=== PATIENT | female | born 1965 | race African-American/Black ===

== ENCOUNTER 2017-09-03 18:42 | Inpatient (IN) | payer OTHER ==
[2017-09-03] MEDS ORDERED: SODIUM CHLORIDE 500 ML IV ONE (19:05)
[2017-09-03] MEDS ORDERED: dilTIAZem HCL 30 MG TABLET (FP) PO ONE (19:18)
[2017-09-03] MEDS ORDERED: dilTIAZem HCL 50 MG/10 ML - 10 ML VIAL IVPUSH ONE ×2 (19:18→19:55)
[2017-09-03 19:20] LABS: HEMATOCRIT 36.5 % (32.4-45.2); HEMOGLOBIN 12.1 GM/dL (10.7-15.3); MCH 34.2 pg (25.7-33.7); MCHC 33.1 g/dl (32.0-36.0); MEAN CELL VOLUME 103.2 fl (80-96); RBC 3.54 M/mm3 (3.60-5.2); RDW 17.8 % (11.6-15.6)
[2017-09-03] MEDS ORDERED: dilTIAZem HCL 125 MG/25 ML - 25 ML VIAL ONE (19:20)
--- NOTE | 2017-09-03 19:23 | PDOC ---
History of Present Illness - General History Source: Patient, Spouse Exam Limitations: No Limitations - History of Present Illness Initial Comments: 09/03/17 19:48 The patient is a 51 year old female with past medical history of asthma, anemia , bipolar disorder and skin disease (psoriasis and eczema) presents to the emergency department via ems complaining of racing heart since around 3:00 in the afternoon. The patient states she was fine in the morning, but states she was having nose bleeds (now resolved) and hemoptysis, later in the day she went to visit her cousin. The patient reports she had to walk up several hill to reach the house, reports using a cane to ambulate. She reports at the house there was no air condition and states the house was hot. The patient reports she experienced symptoms of fatigue, heart palpitation and dyspnea. The patient immediately pressed her life alert necklace. The patient reports a baseline of bad appetite, the reports she doesn't intake much. The patient reports daily watery (non bilious or non bloody) vomiting. The patient reports having a MRI done which showed 30 fibroids in the uterus, reports a generalized left quadrant abdominal pain. The patient reports going to physical therapy for her left hip.Denies any prior history of Afib. Denies daily use of blood thinners. Denies dehydration, diarrhea or constipation. Denies any fever, chills, or chest pain. Denies any dysuria, hematuria, frequency or urgency to urinate. Allergies: NKDA Social history: Patient reports occasional use of alcohol, states she has 1-2 drinks yesterday. Denies any history of smoking or recreational drug use. Surgical history: None reported. PCP: [facility] Dr. Za Orlando MD (Last visit last week). <Melissa Vincent - Last Filed: 09/03/17 20:24> <Geoff Chou - Last Filed: 09/03/17 20:55> - General Chief Complaint: Palpitations Stated Complaint: AFIB,WEAKNESS,DIZZINESS Time Seen by Provider: 09/03/17 18:57 Past History <Melissa Vincent - Last Filed: 09/03/17 20:24> - Suicide/Smoking/Psychosocial Hx Smoking History: Unknown if ever smoked Hx Alcohol Use: Yes <Geoff Chou - Last Filed: 09/03/17 20:55> - Past Medical History Allergies/Adverse Reactions: Allergies Allergy/AdvReac Type Severity Reaction Status Date / Time No Known Allergies Allergy Verified 09/03/17 19:06 Review of Systems - Review of Systems Constitutional: No: Chills, Fever Respiratory: Yes: SOB with Exertion. No: Cough Cardiac (ROS): Yes: Palpitations. No: Chest Pain, Edema, Syncope ABD/GI: Yes: Vomiting (chronic every morning). No: Diarrhea : No: Dysuria Neurological: No: Headache All Other Systems: Reviewed and Negative <Geoff Chou - Last Filed: 09/03/17 20:55> *Physical Exam - Vital Signs Last Vital Signs Temp Pulse Resp BP Pulse Ox 98.8 F 90 20 102/74 97 09/03/17 19:00 09/03/17 19:00 09/03/17 19:00 09/03/17 19:00 09/03/17 19:00 - Physical Exam Comments: 09/03/17 19:51 GENERAL: The patient is awake, alert, and fully oriented, in no acute distress. HEAD: Normal with no signs of trauma. EYES: Pupils equal, round and reactive to light, extraocular movements intact, sclera anicteric, conjunctiva clear with no pallor. ENT: Ears normal, nares patent, oropharynx clear without exudates. Moist mucous membranes. NECK: Normal range of motion, supple without lymphadenopathy, JVD, or masses. LUNGS: Breath sounds equal, clear to auscultation bilaterally. No wheeze/ crackles. HEART: (+)Irregular tachycardia. normal S1 and S2 without murmur or rub. ABDOMEN:(+)Palpable enlarged tender uterus to the umbilicus Soft/nondistended. BS wnl. No guarding or rebound. No hepatosplenomegaly. EXTREMITIES: Normal range of motion, no edema. No clubbing or cyanosis. No cords, erythema, or tenderness. NEUROLOGICAL: Cranial nerves II through XII grossly intact. Normal speech, normal gait. PSYCH: Normal mood, normal affect. SKIN: Warm, Dry, normal turgor, no rashes or lesions noted. <Melissa Vincent - Last Filed: 09/03/17 20:24> - Vital Signs Last Vital Signs Temp Pulse Resp BP Pulse Ox 98.8 F 90 20 102/74 97 09/03/17 19:00 09/03/17 19:00 09/03/17 19:00 09/03/17 19:00 09/03/17 19:00 <Geoff Chou - Last Filed: 09/03/17 20:55> Heart Score/ECG Review #1 ECG reviewed & interpreted by me at: 18:58 Compared to previous ECG there are: Previous ECG unavail 09/03/17 19:19 afib with RVR at 135. qrs 86. no acute st changes, nonspecific t wave changes #2 ECG reviewed & interpreted by me at: 20:49 09/03/17 20:53 afib now at 129, no ST changes <Geoff Chou - Last Filed: 09/03/17 20:55> ED Treatment Course - LABORATORY CBC & Chemistry Diagram: 09/03/17 19:11 09/03/17 19:11 - ADDITIONAL ORDERS Additional order review: Laboratory Results 09/03/17 19:11 PT with INR 12.10 INR 1.07 09/03/17 19:11 RBC 3.54 L MCV 103.2 H MCHC 33.1 RDW 17.8 H Neutrophils % No Result Required. Lymphocytes % No Result Required. - Medications Given in the ED: ED Medications Discontinued Medications Generic Name Dose Route Start Last Admin Trade Name Freq PRN Reason Stop Dose Admin Diltiazem HCl 30 mg 09/03/17 19:18 09/03/17 19:22 Cardizem - PO 09/03/17 19:19 30 mg ONCE ONE Administration Diltiazem HCl 10 mg 09/03/17 19:18 09/03/17 19:22 Cardizem Injection - IVPUSH 09/03/17 19:19 10 mg ONCE ONE Administration <Melissa Vincent - Last Filed: 09/03/17 20:24> - LABORATORY CBC & Chemistry Diagram: 09/03/17 19:11 09/03/17 19:11 - RADIOLOGY Radiology Studies Ordered: Category Date Time Status CHEST X-RAY PORTABLE* [RAD] Stat Radiology 09/03/17 19:05 Ordered <Geoff Cohu - Last Filed: 09/03/17 20:55> Medical Decision Making - Critical Care Time Total Critical Care Time (minutes): 50 Critical Care Statement: The care of this patient involved high complexity decision making to prevent further life threatening deterioration of the patient 's condition and/or to evaluate & treat vital organ system(s) failure or risk of failure. - Medical Decision Making 09/03/17 19:20 A portion of this note was documented by scribe services under my direction. I have reviewed the details of the note, within reason, and agree with the documentation with the following case summary and management plan written by me. 51-year-old female with history of bipolar disorder, asthma, fibroids and anemia presents with palpitations and generalized weakness/dyspnea since this afternoon. Patient was in her usual state of health, today was ambulating outside in the heat and felt unusually fatigued, arrived at her friend's house and activated EMS on her med alert. She was noted to have tachycardia, presents for evaluation. Does not recall having prior cardiac evaluation such as stress test or echo, has no known history of atrial fibrillation. Never had chest pain or pressure. No recent weight loss, no leg swelling. No h/o etoh or drug use Tachycardia, blood pressure 105/60, O2 sat normal Well-appearing lying in stretcher, speaking full sentences without acute respiratory distress Heart is irregular tachycardia, lungs are clear Abdomen is soft/nondistended, palpable enlarged fibroid uterus to the umbilicus No edema or calf tenderness Neurologically intact 51-year-old female with history of bipolar her and anemia presents with likely new onset atrial fibrillation, currently with rapid ventricular response. Immediately placed on monitor, IV access obtained and IV fluid resuscitation initiated EKG shows rapid atrial fibrillation without acute ST changes Rate control with diltiazem Labs, chest x-ray Has history of anemia and question skin disorder/bruising, will check labs prior to initiating anticoagulation Likely admission to telemetry for further cardiac evaluation 09/03/17 19:55 wbc 2, diff pending. Hgb 12.1 chem notable for hypocalcemia, hypomagnesemia - both repleted. Trop negative. elevated LFTs, will check ultrasound received diltiazem IV and PO, HR only slightly improved to 120, tolerated well with BP now 130. Will give another dose diltiazem IV and reassess. 09/03/17 20:16 rate now controlled at 100 after 10mg IV x2. BP stable, feels better. Pending sono, platelets still pending so will hold a/c until resulted. Signout given and accepted for inpt tele by Dr. Royal. 09/03/17 20:54 heart rate increased back to 120s. Will start diltiazem drip, proceed with tele admit. <Geoff Chou - Last Filed: 09/03/17 20:55> *DC/Admit/Observation/Transfer - Attestations Scribe Attestion: 09/03/17 19:52 Documentation prepared by Melissa Vincent, acting as medical terminologist for Geoff Chou MD. <Melissa Vincent - Last Filed: 09/03/17 20:24> - Discharge Dispostion Decision to Admit order: Yes <Geoff Chou - Last Filed: 09/03/17 20:55> Diagnosis at time of Disposition: Atrial fibrillation with rapid ventricular response, Elevated LFTs - Discharge Dispostion Condition at time of disposition: Fair
[2017-09-03] MEDS ORDERED: dilTIAZem HCL 30 MG TABLET (FP) ONE (19:24)
[2017-09-03 19:27] LABS: ADD RBC MORPHOLOGY YES
[2017-09-03 19:45] LABS: INR 1.07 (0.82-1.09); PROTHROMBIN TIME (PATIENT) 12.1 SEC (9.7-13.0)
[2017-09-03 19:47] VITALS: BMI 25.5
[2017-09-03 19:47] LABS: ALBUMIN 3.2 g/dl (3.4-5.0); ANION GAP 13 (8-16); BILIRUBIN,TOTAL 2.8 mg/dL (0.2-1.0); BLOOD UREA NITROGEN 5 mg/dL (7-18); CALCIUM 7.6 mg/dL (8.5-10.1); CHLORIDE 100 mmol/L (98-107); CO2 26 mmol/L (21-32); CREATININE 0.7 mg/dL (0.55-1.02); GLUCOSE,RANDOM 74 mg/dL (74-106); MAGNESIUM 1.4 mg/dL (1.8-2.4); POTASSIUM 3.6 mmol/L (3.5-5.1); SGPT/ALT 83 U/L (12-78); SODIUM 139 mmol/L (136-145); TOT PROT 6.8 g/dl (6.4-8.2)
[2017-09-03 19:50] LABS: ALK PHOS 161 U/L (45-117)
[2017-09-03 19:53] LABS: SGOT/AST 592 U/L (15-37)
[2017-09-03] MEDS ORDERED: MAGNESIUM SULF 50% (8.12 MEQ/2 ML-1 GM VIAL) IVPB ONE (19:56)
[2017-09-03] MEDS ORDERED: CALCIUM GLUCONATE 10% - 1,000 MG/10 ML VIAL IVPB ONE (19:56)
[2017-09-03] MEDS ORDERED: IBUPROFEN 600 MG TABLET (FP) PO ONE ×2 (19:59→20:14)
[2017-09-03] MEDS ORDERED: CALCIUM CHLORIDE 1 GM/10 ML *DISP.SYRIN ONE ×2 (20:15→20:20)
[2017-09-03] MEDS ORDERED: MAGNESIUM SULF 50% (8.12 MEQ/2 ML-1 GM VIAL) ONE (20:28)
[2017-09-03 20:29] LABS: MEAN PLT VOLUME 7.9 fl (7.5-11.1); PLATELET COUNT 94 K/MM3 (134-434); PLATELET ESTIMATE SLT DECREASE
--- NOTE | 2017-09-03 20:38 | HP ---
CHIEF COMPLAINT: PCP: HISTORY OF PRESENT ILLNESS: ER course was notable for: (1) (2) (3) Recent Travel: PAST MEDICAL HISTORY: PAST SURGICAL HISTORY: Social History: Smoking: Alcohol: Drugs: Family History: Allergies No Known Allergies Allergy (Verified 09/03/17 19:06) HOME MEDICATIONS: REVIEW OF SYSTEMS CONSTITUTIONAL: Absent: fever, chills, diaphoresis, generalized weakness, malaise, loss of appetite, weight change HEENT: Absent: rhinorrhea, nasal congestion, throat pain, throat swelling, difficulty swallowing, mouth swelling, ear pain, eye pain, visual changes CARDIOVASCULAR: Absent: chest pain, syncope, palpitations, irregular heart rate, lightheadedness , peripheral edema RESPIRATORY: Absent: cough, shortness of breath, dyspnea with exertion, orthopnea, wheezing, stridor, hemoptysis GASTROINTESTINAL: Absent: abdominal pain, abdominal distension, nausea, vomiting, diarrhea, constipation, melena, hematochezia GENITOURINARY: Absent: dysuria, frequency, urgency, hesitancy, hematuria, flank pain, genital pain MUSCULOSKELETAL: Absent: myalgia, arthralgia, joint swelling, back pain, neck pain SKIN: Absent: rash, itching, pallor HEMATOLOGIC/IMMUNOLOGIC: Absent: easy bleeding, easy bruising, lymphadenopathy, frequent infections ENDOCRINE: Absent: unexplained weight gain, unexplained weight loss, heat intolerance, cold intolerance NEUROLOGIC: Absent: headache, focal weakness or paresthesias, dizziness, unsteady gait, seizure, mental status changes, bladder or bowel incontinence PSYCHIATRIC: Absent: anxiety, depression, suicidal or homicidal ideation, hallucinations. PHYSICAL EXAMINATION Vital Signs - 24 hr 09/03/17 19:00 Temperature 98.8 F Pulse Rate 90 Respiratory 20 Rate Blood Pressure 102/74 O2 Sat by Pulse 97 Oximetry (%) GENERAL: Awake, alert, and fully oriented, in no acute distress. HEAD: Normal with no signs of trauma. EYES: Pupils equal, round and reactive to light, extraocular movements intact, sclera anicteric, conjunctiva clear. No lid lag. EARS, NOSE, THROAT: Ears normal, nares patent, oropharynx clear without exudates. Moist mucous membranes. NECK: Normal range of motion, supple without lymphadenopathy, JVD, or masses. LUNGS: Breath sounds equal, clear to auscultation bilaterally. No wheezes, and no crackles. No accessory muscle use. HEART: Regular rate and rhythm, normal S1 and S2 without murmur, rub or gallop. ABDOMEN: Soft, nontender, not distended, normoactive bowel sounds, no guarding, no rebound, no masses. No hepatomegaly or splenomegaly. MUSCULOSKELETAL: Normal range of motion at all joints. No bony deformities or tenderness. No CVA tenderness. UPPER EXTREMITIES: 2+ pulses, warm, well-perfused. No cyanosis. No clubbing. No peripheral edema. LOWER EXTREMITIES: 2+ pulses, warm, well-perfused. No calf tenderness. No peripheral edema. NEUROLOGICAL: Cranial nerves II-XII intact. Normal speech. Normal gait. PSYCHIATRIC: Cooperative. Good eye contact. Appropriate mood and affect. SKIN: Warm, dry, normal turgor, no rashes or lesions noted, normal capillary refill. Laboratory Results - last 24 hr 09/03/17 09/03/17 09/03/17 19:11 19:11 19:11 WBC 2.0 L RBC 3.54 L Hgb 12.1 Hct 36.5 MCV 103.2 H MCH 34.2 H MCHC 33.1 RDW 17.8 H Plt Count 94 L MPV 7.9 Neutrophils % No Result Required. Lymphocytes % No Result Required. Nucleated RBC % 1 H Platelet Estimate Slt decrease Platelet Comment PT with INR 12.10 INR 1.07 Sodium 139 Potassium 3.6 Chloride 100 Carbon Dioxide 26 Anion Gap 13 BUN 5 L Creatinine 0.7 Creat Clearance w eGFR > 60 Random Glucose 74 Calcium 7.6 L Magnesium 1.4 L Total Bilirubin 2.8 H AST 592 H ALT 83 H Alkaline Phosphatase 161 H Creatine Kinase 301 H Creatine Kinase Index 0.8 CK-MB (CK-2) 2.420 Troponin I < 0.02 Total Protein 6.8 Albumin 3.2 L ASSESSMENT/PLAN: Hospitalist Screening - Colonoscopy Questionnaire Colonoscopy Questionnaire: Colonoscopy Questionnaire
[2017-09-03 20:43] LABS: MACROCYTOSIS 1+; TARGET CELLS 1+
--- NOTE | 2017-09-03 21:00 | PN ---
Teaching Attending Note Name of Resident: Milena Baca ATTENDING PHYSICIAN STATEMENT I saw and evaluated the patient. I reviewed the resident's note and discussed the case with the resident. I agree with the resident's findings and plan as documented. SUBJECTIVE: OBJECTIVE: ASSESSMENT AND PLAN: this is a 51 y/o female patient with hx of bipolar disorder, fibroids and chronic hip pain presented to the ER after the patient stated she was feeling her heart beating fast and she was out of breath, patient stated this was the first time she has had symptoms like this before. she is visiting her friends and according to her she had issues sleeping due to the hot weather without any aircondition is on. patient in the ER was found to have atrial fibrillation with Low voltage QRS with RVR. plan: rate control with diltiazem 30mg q8hrs cardiology consult obtain TSH urine toxicology echocardiogram patient has a CHADVasc score of 1 - arvizu zone of initiating the anticoagulation discussed with the patient the benefit and the risk of having being on anticoagulation - i even explained to her that we can start her on enoxaprin until she decides, however she said she is willing to take the medication since she does not want to risk having a stroke. also she does not want the enoxaparin because she does not want any injections. patient was informed that there is an increased risk of GI bleeding and possible bleeding from the fibroids, but she stated that they havent bleed in years, will star the patient on rivaroxiban tonight will follow up with cardiology recommendation in the morning.
[2017-09-03] MEDS: DILTIAZEM INJECTION 125 MG in SODIUM CHLORIDE 100 ML IVPB SCH (21:57)
[2017-09-03] MEDS: dilTIAZem HCL 30 MG TABLET (FP) PO SCH (22:50)
[2017-09-03] MEDS: HEPARIN NA (PORCINE) 5,000 UNITS/ML 1ML VIAL SQ SCH (23:05)
--- NOTE | 2017-09-04 00:38 | HP ---
CHIEF COMPLAINT:palpitations. PCP:Dr. Za Orlando MD HISTORY OF PRESENT ILLNESS: 51 y/o female patient with hx of bipolar disorder, fibroids and chronic hip pain presented to the ER after the patient stated she was feeling her heart beating fast and she was out of breath, patient stated this was the first time she has had symptoms like this before. She is visiting her friends and according to her she had issues sleeping due to the hot weather without any air condition on. She also endorses some generalized left quadrant abdominal pain. States that she has been having some NBNB vomiting as well. She admits to having consumed 1/2 pint of vodka the night before. No history of irregular heart beat or use of blood thinners. Denies CP,PAGE, nausea, urinary symptoms , fever or chills. ER course was notable for: (1)EKG showed afib with RVR (2)Elevated LFT's (3) Recent Travel: PAST MEDICAL HISTORY:asthma, anemia, bipolar disorder and skin disease ( psoriasis and eczema) PAST SURGICAL HISTORY:none Social History: Smoking:denies Alcohol:occasional Drugs: denies Family History: Allergies No Known Allergies Allergy (Verified 09/03/17 19:06) HOME MEDICATIONS: REVIEW OF SYSTEMS CONSTITUTIONAL: Absent: fever, chills, diaphoresis, generalized weakness, malaise, loss of appetite, weight change HEENT: Absent: rhinorrhea, nasal congestion, throat pain, throat swelling, difficulty swallowing, mouth swelling, ear pain, eye pain, visual changes CARDIOVASCULAR: palpitations, irregular heart rate Absent: chest pain, syncope, , lightheadedness, peripheral edema RESPIRATORY: Absent: cough, shortness of breath, dyspnea with exertion, orthopnea, wheezing, stridor, hemoptysis GASTROINTESTINAL:abdominal pain Absent: , abdominal distension, nausea, vomiting, diarrhea, constipation, melena , hematochezia GENITOURINARY: Absent: dysuria, frequency, urgency, hesitancy, hematuria, flank pain, genital pain MUSCULOSKELETAL: Absent: myalgia, arthralgia, joint swelling, back pain, neck pain SKIN: Absent: rash, itching, pallor HEMATOLOGIC/IMMUNOLOGIC: Absent: easy bleeding, easy bruising, lymphadenopathy, frequent infections ENDOCRINE: Absent: unexplained weight gain, unexplained weight loss, heat intolerance, cold intolerance NEUROLOGIC: Absent: headache, focal weakness or paresthesias, dizziness, unsteady gait, seizure, mental status changes, bladder or bowel incontinence PSYCHIATRIC: Absent: anxiety, depression, suicidal or homicidal ideation, hallucinations. PHYSICAL EXAMINATION Vital Signs - 24 hr 09/03/17 09/03/17 19:00 23:05 Temperature 98.8 F Pulse Rate 90 72 Respiratory 20 Rate Blood Pressure 102/74 118/66 O2 Sat by Pulse 97 Oximetry (%) GENERAL:AAOx3 NAD EYES: PERRLA, EOMI, sclera anicteric, conjunctiva clear. No lid lag. EARS, NOSE, THROAT: Moist mucous membranes. NECK:supple without lymphadenopathy, JVD, or masses. LUNGS: CTAB. No wheezes, and no crackles. No accessory muscle use. HEART: irregularly irregular and tachy, normal S1 and S2 without murmur, rub or gallop. ABDOMEN: Soft, nontender, not distended, normoactive bowel sounds, no guarding, no rebound, no masses. MUSCULOSKELETAL: Normal range of motion at all joints. No bony deformities or tenderness. No CVA tenderness. LOWER EXTREMITIES: 2+ pulses, warm, well-perfused. No calf tenderness. No peripheral edema. NEUROLOGICAL: Cranial nerves II-XII intact. Normal speech. PSYCHIATRIC: Cooperative. Good eye contact. Appropriate mood and affect. Laboratory Results - last 24 hr 09/03/17 09/03/17 09/03/17 19:11 19:11 19:11 WBC 2.0 L RBC 3.54 L Hgb 12.1 Hct 36.5 MCV 103.2 H MCH 34.2 H MCHC 33.1 RDW 17.8 H Plt Count 94 L MPV 7.9 Total Counted 100 Neutrophils % No Result Required. Neutrophils % (Manual) 52.0 Lymphocytes % No Result Required. Lymphocytes % (Manual) 32.0 Monocytes % (Manual) 12 H Eosinophils % (Manual) 1.0 Nucleated RBC % 1 H Differential Comment Man diff performed Platelet Estimate Slt decrease Platelet Comment Poikilocytosis 1+ Macrocytosis 1+ Target Cells 1+ PT with INR 12.10 INR 1.07 Sodium 139 Potassium 3.6 Chloride 100 Carbon Dioxide 26 Anion Gap 13 BUN 5 L Creatinine 0.7 Creat Clearance w eGFR > 60 Random Glucose 74 Calcium 7.6 L Magnesium 1.4 L Total Bilirubin 2.8 H AST 592 H ALT 83 H Alkaline Phosphatase 161 H Creatine Kinase 301 H Creatine Kinase Index 0.8 CK-MB (CK-2) 2.420 Troponin I < 0.02 Total Protein 6.8 Albumin 3.2 L ASSESSMENT/PLAN: 51 y/o female patient with hx of bipolar disorder, fibroids and chronic hip pain presented to the ER after the patient stated she was feeling her heart beating fast and she was out of breath and is being admitted to telemetry for new onset afib with RVR. Problem List - Problem (1) Atrial fibrillation with rapid ventricular response Assessment/Plan: New onset * CHADVASC score 1 * admit to tele * cardio consult * TSH pending. * Utox * Echo pending. * started on Cardizem 30mg TID * will start Xarelto 20mg PO (2) Elevated LFTs Assessment/Plan: US abdomen shows fatty liver vs. cirrhotic changes. * Will recommend MRI. * repeat LFT's in AM (3) DVT prophylaxis Assessment/Plan: heparin sq TID will start xarelto tomorrow pending cardio recommendations. Visit type - Emergency Visit Emergency Visit: Yes ED Registration Date: 09/03/17 Care time: The patient presented to the Emergency Department on the above date and was hospitalized for further evaluation of their emergent condition. - New Patient This patient is new to me today: Yes Date on this admission: 09/04/17 - Critical Care Critical Care patient: No Hospitalist Screening - Colonoscopy Questionnaire Colonoscopy Questionnaire: Colonoscopy Questionnaire - Patient: 50 - 75 years old and never had a screening colonoscopy: No History of colon or rectal polyps, or CA: No History of IBD, Crohn's disease or UC: No History of abdominal radiation therapy as a child: No - Relative: 1 with colon or rectal CA, or polyps at age 60 or younger: No Colon or rectal CA diagnosed at age 45 or younger: No Multiple relatives with colon or rectal CA: No - Outcome: Screening Result: Negative Screen
[2017-09-04] MEDS: dilTIAZem HCL 30 MG TABLET (FP) PO SCH ×3 (06:35→21:30)
[2017-09-04] MEDS: HEPARIN NA (PORCINE) 5,000 UNITS/ML 1ML VIAL SQ SCH (06:37)
[2017-09-04 07:37] LABS: BASO % 1.5 % (0-2.0); EOS % 1.4 % (0-4.5); HEMATOCRIT 32.6 % (32.4-45.2); LYMPH % 29.1 % (8-40); MCHC 33.7 g/dl (32.0-36.0); MEAN CELL VOLUME 103.7 fl (80-96); MEAN PLT VOLUME 8.1 fl (7.5-11.1); MONO % 10.6 % (3.8-10.2); NEUT % 57.4 % (42.8-82.8); PLATELET COUNT 78 K/MM3 (134-434); RBC 3.14 M/mm3 (3.60-5.2); RDW 17.6 % (11.6-15.6)
[2017-09-04 07:41] LABS: WHITE BLOOD COUNT 1.6 K/mm3 (4.0-10.0)
[2017-09-04 08:21] LABS: ALBUMIN 2.7 g/dl (3.4-5.0); ANION GAP 14 (8-16); BLOOD UREA NITROGEN 4 mg/dL (7-18); CALCIUM 7.3 mg/dL (8.5-10.1); CHLORIDE 106 mmol/L (98-107); CO2 22 mmol/L (21-32); GLUCOSE,RANDOM 50 mg/dL (74-106); MAGNESIUM 1.6 mg/dL (1.8-2.4); PHOSPHOROUS 3.8 mg/dL (2.5-4.9); POTASSIUM 3.5 mmol/L (3.5-5.1); SGPT/ALT 72 U/L (12-78); SODIUM 142 mmol/L (136-145)
[2017-09-04 08:32] LABS: ALK PHOS 133 U/L (45-117); BILIRUBIN,TOTAL 2.7 mg/dL (0.2-1.0); CREATININE 0.5 mg/dL (0.55-1.02); TOT PROT 5.9 g/dl (6.4-8.2)
[2017-09-04 08:42] LABS: SGOT/AST 518 U/L (15-37)
--- NOTE | 2017-09-04 10:12 | EKG ---
Test Reason : Blood Pressure : / mmHG Vent. Rate : 135 BPM Atrial Rate : 150 BPM P-R Int : 000 ms QRS Dur : 086 ms QT Int : 336 ms P-R-T Axes : 000 056 -06 degrees QTc Int : 504 ms ATRIAL FIBRILLATION WITH RAPID VENTRICULAR RESPONSE LOW VOLTAGE QRS SEPTAL INFARCT , AGE UNDETERMINED ABNORMAL ECG NO PREVIOUS ECGS AVAILABLE Confirmed by MARIA CHAVIS MD ([id number]) on 09/04/2017 10:12:34 AM Referred By: Confirmed By:MARIA CHAVIS MD
--- NOTE | 2017-09-04 10:12 | EKG ---
Test Reason : Blood Pressure : / mmHG Vent. Rate : 129 BPM Atrial Rate : 100 BPM P-R Int : 000 ms QRS Dur : 096 ms QT Int : 348 ms P-R-T Axes : 000 061 012 degrees QTc Int : 509 ms ATRIAL FIBRILLATION WITH RAPID VENTRICULAR RESPONSE LOW VOLTAGE QRS CANNOT RULE OUT ANTERIOR INFARCT (CITED ON OR BEFORE 03-SEP-2017) ABNORMAL ECG WHEN COMPARED WITH ECG OF 03-SEP-2017 18:58, QUESTIONABLE CHANGE IN INITIAL FORCES OF ANTERIOR LEADS NONSPECIFIC T WAVE ABNORMALITY NOW EVIDENT IN LATERAL LEADS Confirmed by PARTHA CLAUDIO, MARIA ([id number]) on 09/04/2017 10:12:15 AM Referred By: Confirmed By:MARIA CHAVIS MD
[2017-09-04] MEDS ORDERED: ONDANSETRON 4 MG/2 ML VIAL IVPUSH PRN ×2 (10:23→13:53)
[2017-09-04] MEDS ORDERED: LORazepam 1 MG TABLET PO PRN (10:23)
--- NOTE | 2017-09-04 10:29 | CON.GI ---
Consult Consult Specialty:: GI: Dr. Petersen for Dr. Pineda Referred by:: Hospitalist service Reason for Consultation:: Abnormal LFTs - History of Present Illness Chief Complaint: Palpitations History of Present Illness: 51F with palpitations. Used her medicalert necklace to call 911. Noted to be in A. Fib w/ RVR. Admitted. Had vomiting. Liver chemistries noted to be elevated including ALP, bilirubin and AST out of proportion to ALT. She has been told of fatty liver before in the past. She drinks a pint of vodaka per day and says that she has been through Detox in the [place] on multiple occasions. She has had episodes of etoh withdrawal in the past composed of tremors, nausea and vomiting. She denies abdominal pain. There is no family h/ o liver disease. She denies IVDA. She has never had a colonoscopy. There is no family history of colorectal cancer. - History Source History Provided By: Patient Limitations to Obtaining History: No Limitations - Past Medical History ...: No Psych: Yes: Addictions (ETOH abuse) Musculoskeletal: Yes: Other ("Left hip problem" and uses cane to aid in ambulation) - Past Surgical History Additional Surgical History: Denies - Alcohol/Substance Use Hx Alcohol Use: Yes History of Substance Use: reports: Cocaine (ex intranasal and crack cocaine abuse) - Smoking History Smoking history: Current every day smoker Have you smoked in the past 12 months: Yes - Social History Usual Living Arrangement: Alone ADL: Independent Place of : [facility] History of Recent Travel: No Home Medications - Allergies Allergies/Adverse Reactions: Allergies Allergy/AdvReac Type Severity Reaction Status Date / Time No Known Allergies Allergy Verified 09/03/17 19:06 Family Disease History - Family Disease History Family Disease History: Other: Father (Alive: etoh abuse), Mother ( when patient was 1. was overdosed), Brother (3, 1 from [place]), Sister (3, healthy) , Son (None), Daughter (None) Other Family History: No family history of liver disease, colorectal cancer or other GI malignancy Review of Systems - Review of Systems Constitutional: denies: Chills Cardiovascular: reports: Palpitations. denies: Chest Pain Respiratory: denies: Cough Gastrointestinal: reports: Vomiting. denies: Abdominal Pain Physical Exam-GI Vital Signs: Vital Signs Temperature 98.4 F 09/04/17 08:53 Pulse Rate 62 09/04/17 08:53 Respiratory Rate 22 09/04/17 08:53 Blood Pressure 122/61 09/04/17 08:53 O2 Sat by Pulse Oximetry (%) 94 L 09/03/17 22:00 Constitutional: Yes: Calm Eyes: No: Sclera Icterus Cardiovascular: Yes: Regular Rate and Rhythm Respiratory: Yes: CTA Bilaterally Gastrointestinal Inspection: No: Distention, Scars ...Auscultate: Yes: Normoactive Bowel Sounds ...Palpate: Yes: Hepatomegaly, Soft. No: Splenomegaly ...Percussion: No: Tympanitic Edema: No (No LE edema) Neurological: Yes: Alert, Oriented, Tremors. No: [facility]ix[facility] Labs: CBC, BMP 09/04/17 07:13 09/04/17 07:13 INR, PTT INR 1.07 (0.82-1.09) 09/03/17 19:11 Hepatic Panel Total Bilirubin 2.7 mg/dL (0.2-1.0) H 09/04/17 07:13 AST 518 U/L (15-37) H 09/04/17 07:13 ALT 72 U/L (12-78) 09/04/17 07:13 Alkaline Phosphatase 133 U/L (45-117) H 09/04/17 07:13 Albumin 2.7 g/dl (3.4-5.0) L 09/04/17 07:13 Imaging - Results Ultrasound: Report Reviewed (hepatomegaly with fatty infiltration) Problem List - Problems (1) Elevated LFTs Assessment/Plan: Asymptomatic in nature. Likely secondary to acute ETOH use, alcoholic hepatitis and some component from her a. fib Also she is tremulous and likely going into DT's Advise: MRCP to evaluate biliary tract Advised complete alcohol cessation Check hepatitis A antibody, hepatitis B surface antibody, heptitis B surface antigen, hepatitis B core antibody, hepatitis C antibody. If not immune to hepatitis B, should be advised she should be vaccinated Monitor LFTs Avoid hepatotoxic agents Rate control Replete lytes per primary team Code(s): R79.89 - OTHER SPECIFIED ABNORMAL FINDINGS OF BLOOD CHEMISTRY
[2017-09-04] MEDS ORDERED: PANTOPRAZOLE SODIUM 40 MG VIAL IVPUSH SCH (10:30)
[2017-09-04 10:34] LABS: COCAINE, UR NEGATIVE ng/ml (CUTOFF=300); METHADONE, UR NEGATIVE ng/ml (CUTOFF=300); OPIATES, URI NEGATIVE ng/ml (CUTOFF=300); PHENCYCLIDINE,URINE NEGATIVE ng/ml (CUTOFF=25); URINE AMPHETAMINES NEGATIVE ng/ml (CUTOFF=500); URINE BARBITURATES NEGATIVE ng/ml (CUTOFF=200); URINE BENZODIAZEPINES NEGATIVE ng/ml (CUTOFF=200)
[2017-09-04] MEDS ORDERED: FOLIC ACID INJECTION - 1 MG, THIAMINE HCL 100 MG, MULTIVIT INJECTION ADULT 10 ML in SOD... IVPB ONE (10:45)
[2017-09-04] MEDS ORDERED: MAGNESIUM SULF 50% (8.12 MEQ/2 ML-1 GM VIAL) IVPB ONE (12:35)
--- NOTE | 2017-09-04 12:47 | PN ---
Progress Note (short form) - Note Progress Note: Patient seen and examined, Tremulous, nausea/vomiting noted. denies any abdominal pain, chest pain, palpitations, dyspnea or dizziness. Objective: Vital Signs Period Temp Pulse Resp BP Sys/Marie Pulse Ox Last 24 Hr 97.1 F-99.3 F 62-121 20-22 102-125/61-79 94-97 Intake & Output 09/01/17 09/02/17 09/03/17 09/04/17 23:59 23:59 23:59 23:59 Intake Total 150 Balance 150 Weight 183 lb 178 lb 9.6 oz General: anxious, mildly tremulous, actively retching, with some vomitus in bed CVS:S1S2 regular currently Chest: CTAB, no rales or wheezing Abdomen:soft, hepatomegaly, mild tenderness along right hepatic margin, no voluntary or involuntary guarding or rigidity Extremities: mildly tremulous, no edema Active Medications Generic Name Dose Route Start Last Admin Trade Name Freq PRN Reason Stop Dose Admin Diltiazem HCl 30 mg 09/03/17 22:00 09/04/17 06:35 Cardizem - PO Not Given TID GERALDO Diltiazem HCl 125 mg/ Sodium 125 mls @ 10 mls/hr 09/03/17 21:00 09/03/17 23: 05 Chloride IVPB 0 mg/hr TITR GERALDO 0 mls/hr Titration Protocol 10 MG/HR Folic Acid 1 mg/ Thiamine HCl 1,000 mls @ 125 mls/hr 09/04/17 10:45 100 mg/ Multivitamins/Minerals IVPB 09/04/17 18:44 10 ml/ Sodium Chloride ONCE ONE Sodium Chloride 1,000 mls @ 100 mls/hr 09/04/17 18:25 Normal Saline - IV ASDIR GERALDO Potassium Phosphate 15 mm/ 255 mls @ 62.5 mls/hr 09/04/17 13:30 Dextrose IVPB 09/04/17 17:34 ONCE ONE Magnesium Sulfate 2 gm in 50 mls @ 50 mls/hr 09/04/17 13:00 Magnesium Sulf 2 G/50 Ml Bag IVPB 09/04/17 13:59 ONCE ONE Lorazepam 2 mg 09/04/17 10:23 09/04/17 11:38 Ativan - PO 2 mg Q6H PRN Administration WITHDRAWAL(CONT SUBST) Lorazepam 1 mg 09/04/17 10:24 Ativan Injection - IVPUSH Q6H PRN WITHDRAWAL(CONT SUBST) Ondansetron HCl 4 mg 09/04/17 10:23 09/04/17 11:38 Zofran Injection IVPUSH 4 mg Q6H PRN Administration NAUSEA Pantoprazole Sodium 40 mg 09/04/17 10:30 09/04/17 11:38 Protonix Iv IVPUSH 40 mg DAILY GERALDO Administration Laboratory Results - last 24 hr 09/03/17 09/03/17 09/03/17 19:11 19:11 19:11 WBC 2.0 L RBC 3.54 L Hgb 12.1 Hct 36.5 MCV 103.2 H MCH 34.2 H MCHC 33.1 RDW 17.8 H Plt Count 94 L MPV 7.9 Total Counted 100 Neutrophils % No Result Required. Neutrophils % (Manual) 52.0 Lymphocytes % No Result Required. Lymphocytes % (Manual) 32.0 Monocytes % Monocytes % (Manual) 12 H Eosinophils % Eosinophils % (Manual) 1.0 Basophils % Nucleated RBC % 1 H Differential Comment Man diff performed Platelet Estimate Slt decrease Platelet Comment Poikilocytosis 1+ Macrocytosis 1+ Target Cells 1+ PT with INR 12.10 INR 1.07 Sodium 139 Potassium 3.6 Chloride 100 Carbon Dioxide 26 Anion Gap 13 BUN 5 L Creatinine 0.7 Creat Clearance w eGFR > 60 Random Glucose 74 Calcium 7.6 L Phosphorus Magnesium 1.4 L Total Bilirubin 2.8 H Direct Bilirubin AST 592 H ALT 83 H Alkaline Phosphatase 161 H Creatine Kinase 301 H Creatine Kinase Index 0.8 CK-MB (CK-2) 2.420 Troponin I < 0.02 Total Protein 6.8 Albumin 3.2 L TSH Opiates Screen Methadone Screen Barbiturate Screen Phencyclidine Screen Ur Amphetamines Screen MDMA (Ecstasy) Screen Benzodiazepines Screen Cocaine Screen U Marijuana (THC) Screen 09/04/17 09/04/17 09/04/17 05:56 07:13 07:13 WBC 1.6 L* RBC 3.14 L Hgb 11.0 Hct 32.6 MCV 103.7 H MCH 35.0 H MCHC 33.7 RDW 17.6 H Plt Count 78 L MPV 8.1 Total Counted Neutrophils % 57.4 Neutrophils % (Manual) Lymphocytes % 29.1 Lymphocytes % (Manual) Monocytes % 10.6 H Monocytes % (Manual) Eosinophils % 1.4 Eosinophils % (Manual) Basophils % 1.5 Nucleated RBC % 0 Differential Comment Platelet Estimate Platelet Comment Poikilocytosis Macrocytosis Target Cells PT with INR INR Sodium 142 Potassium 3.5 Chloride 106 Carbon Dioxide 22 Anion Gap 14 BUN 4 L Creatinine 0.5 L Creat Clearance w eGFR > 60 Random Glucose 50 L Calcium 7.3 L Phosphorus 3.8 Magnesium 1.6 L Total Bilirubin 2.7 H Direct Bilirubin 2.0 H AST 518 H ALT 72 Alkaline Phosphatase 133 H Creatine Kinase Creatine Kinase Index CK-MB (CK-2) Troponin I 0.09 H Total Protein 5.9 L Albumin 2.7 L TSH 3.35 Opiates Screen Negative Methadone Screen Negative Barbiturate Screen Negative Phencyclidine Screen Negative Ur Amphetamines Screen Negative MDMA (Ecstasy) Screen Negative Benzodiazepines Screen Negative Cocaine Screen Negative U Marijuana (THC) Screen Positive Abdominal US results noted Telemetry: reverted to NSR overnight Assessment/Plan: 51 yof with PMHx of asthma, anemia, bipolar disorder and skin disease ( psoriasis and eczema) , ETOH abuse, prior h/o detox admitted with palpitations, found with new onset Afib with RVR. -New onset Afib with RVR, reverted to NSR now -Alcohol abuse/Withdrawal, acute alcohol withdrawal syndrome, at risk for DT's -Abnormal LFTs, likely alcoholic hepatitis (MELD 10), given direct hyperbilirubinemia, r/o obstructive biliary process -Leucopenia with absolute neutropenia, suspect from alcohol related bone marrow suppression, no clinical evidence of infection currently -Thrombocytopenia, likely from alcohol related bone suppression, possible sequestration from splenomegaly, r/o portal hypertension -Hypomagnesemia -Hypokalemia -Bipolar disorder -Asthma Plan: Reverted to NSR. Continue cardizem, telemetry. Follow up cardiology recs and 2D echo. Active alcohol withdrawal concerns and now with worsening thrombocytopenia, high risk for coagulopathy, hold off on xarelto, and follow up cardiology recs. Ativan prn for alcohol withdrawal, continue telmetry. Substance abuse consult. Detox protocol. Trend LFTs, GI input, check hep panel, MRCP. Neutropenic precautions, Hematology input. Replete Mg/K/phos DVTPPX with SCDs. D/C xarelto, heparin subq for now. Dispo pending resolution of active medical issues. Plan discussed with patient in detail, current hepatic/hematology/detox/cardiac concerns discussed in detail. RN and GI updated. Total time spent in patient visit, discussion and co-ordination of care 40 min. Visit type - Emergency Visit Emergency Visit: No - New Patient This patient is new to me today: Yes Date on this admission: 09/04/17 - Critical Care Critical Care patient: No
[2017-09-04] MEDS ORDERED: MAGNESIUM SULFATE IN WATER 2 GM/50 ML IVPB IVPB ONE (13:00)
[2017-09-04] MEDS ORDERED: POTASSIUM PHOSPHATE 15 MM in DEXTROSE 5%-WATER - 250 ML IVPB ONE (13:30)
[2017-09-04 14:31] LABS: INR 1.06 (0.82-1.09)
[2017-09-04 14:33] LABS: ACTIVATED PTT 30.8 SECONDS (26.9-34.4)
--- NOTE | 2017-09-04 16:31 | CONSULT ---
Consult Consult Specialty:: Hematology - History of Present Illness History of Present Illness: 51 y/o female patient with hx of bipolar disorder, fibroids and chronic hip pain is admitted for palpitations ,found to be in A fib. Hematology consulted for CBC abnormalities. Pt seen and examined. - History Source History Provided By: Patient, Medical Record - Past Medical History ...: No Psych: Yes: Addictions (ETOH abuse) Musculoskeletal: Yes: Other ("Left hip problem" and uses cane to aid in ambulation) - Past Surgical History Additional Surgical History: Denies - Alcohol/Substance Use Hx Alcohol Use: Yes History of Substance Use: reports: Cocaine (ex intranasal and crack cocaine abuse) - Smoking History Smoking history: Current every day smoker Have you smoked in the past 12 months: Yes - Social History Usual Living Arrangement: Alone ADL: Independent History of Recent Travel: No Home Medications - Allergies Allergies/Adverse Reactions: Allergies Allergy/AdvReac Type Severity Reaction Status Date / Time No Known Allergies Allergy Verified 09/03/17 19:06 Family Disease History - Family Disease History Family Disease History: Other: Father (Alive: etoh abuse), Mother ( when patient was 1. was overdosed), Brother (3, 1 from [place]), Sister (3, healthy) , Son (None), Daughter (None) Other Family History: No family history of liver disease, colorectal cancer or other GI malignancy Review of Systems - Review of Systems Constitutional: reports: Chills, Malaise Eyes: denies: Blind Spots HENT: denies: Difficult Swallowing, Ear Discharge, Gingival Bleeding, Mouth Swelling Neck: denies: Decreased ROM, Lumps, Pain on Movement Cardiovascular: reports: Palpitations. denies: Chest Pain Respiratory: denies: Cough, Exercise Intolerance, Hemoptysis, Wheezing Gastrointestinal: denies: Abdominal Pain, Bloating, Constipation, Diarrhea Integumentary: reports: No Symptoms Neurological: reports: Tremors Hematology/Lymphatic: reports: No Symptoms Physical Exam Vital Signs: Vital Signs Temperature 98.0 F 09/04/17 14:00 Pulse Rate 70 09/04/17 14:00 Respiratory Rate 18 09/04/17 14:00 Blood Pressure 127/76 09/04/17 14:00 O2 Sat by Pulse Oximetry (%) 95 09/04/17 09:00 Labs: CBC, BMP 09/04/17 07:13 09/04/17 07:13 Imaging - Results Ultrasound: Report Reviewed Assessment/Plan Neutropenia/Thrombocytopenia/macrocytosis: -Etiology: bonemarrow suppression from acute alcohol/Hepato cellular disease/ 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 -monitor fever curve. if febrile, would treat as neutropenic fevers. Alcoholic hepatitis: -GI f/u noted.
--- NOTE | 2017-09-04 17:09 | CON.CARD ---
Cardiology Consult (text) - Consultation Consultation Note: CC: palps, new onset afib with rvr 51 yo smoker with pmhx of etoh abuse and polysubstance use, asthma, anemia, bipolar disorder, fibroids and skin disease (psoriasis and eczema), left hip oa , who p/w palps and found to have new onset afib with rvr complicated by leukopenia/thrombocytopenia, ab troponins and prolonged qtc. describes racing heart since around 3:00 in the afternoon. assoc with fatigue and sob. + recent nose bleeds, hemoptysis, + daily watery (non bilious or non bloody), vomiting, chronic abd pain, chronic hip pain. + fatigue, heart palpitation and dyspnea. s/p ivf, dilt 10 mg iv x 2, dilt 30 mg po x 1 and then started on dilt 30 mg po tid --> conversion to sr. Denies cp, orthopnea, pnd, le edema, dizziness, claudication or transient neurologic symptoms Denies fcs, cough, congestion, h/a, visual disturbances. pmhx/pshx: per hpi fam hx: one brother with fatal PR Social history: + tob, patient drinks 1/2 pint of vodka regularly, has been through Detox in the [place] on multiple occasions with hx of withdrawal sx's. ex intranasal and crack cocaine use, marijuana. Ambulates with cane. ros: per hpi No home meds Current Medications Diltiazem HCl (Cardizem -) 30 mg PO TID [facility] Last Admin: 09/04/17 14:00 Dose: 30 mg Diltiazem HCl 125 mg/ Sodium (Chloride) 125 mls @ 10 mls/hr IVPB TITR GERALDO; Protocol Last Titration: 09/03/17 23:05 Dose: 0 mg/hr, 0 mls/hr Folic Acid 1 mg/ Thiamine HCl 100 mg/ Multivitamins/Minerals 10 ml/ Sodium Chloride 1,000 mls @ 125 mls/hr IVPB ONCE ONE Stop: 09/04/17 18:44 Last Admin: 09/04/17 12:00 Dose: 125 mls/hr Sodium Chloride (Normal Saline -) 1,000 mls @ 100 mls/hr IV ASDIR [facility] Potassium Phosphate 15 mm/ (Dextrose) 255 mls @ 62.5 mls/hr IVPB ONCE ONE Stop: 09/04/17 17:34 Last Admin: 09/04/17 13:59 Dose: 62.5 mls/hr Lorazepam (Ativan -) 2 mg PO Q6H PRN PRN Reason: WITHDRAWAL(CONT SUBST) Last Admin: 09/04/17 11:38 Dose: 2 mg Lorazepam (Ativan Injection -) 1 mg IVPUSH Q6H PRN PRN Reason: WITHDRAWAL(CONT SUBST) Ondansetron HCl (Zofran Injection) 4 mg IVPUSH Q12H PRN PRN Reason: NAUSEA Pantoprazole Sodium (Protonix Iv) 40 mg IVPUSH DAILY GERALDO Last Admin: 09/04/17 11:38 Dose: 40 mg Vital Signs - 24 hr 09/03/17 09/03/17 09/03/17 19:00 22:00 23:05 Temperature 98.8 F Pulse Rate 90 72 Respiratory 20 20 Rate Blood Pressure 102/74 118/66 O2 Sat by Pulse 97 94 L Oximetry (%) 09/04/17 09/04/17 09/04/17 00:29 02:57 05:39 Temperature 98.5 F 97.1 F L 99.3 F Pulse Rate 121 H 68 70 Respiratory 20 20 20 Rate Blood Pressure 105/79 120/75 125/73 O2 Sat by Pulse Oximetry (%) 09/04/17 09/04/17 09/04/17 08:53 09:00 14:00 Temperature 98.4 F 98.0 F Pulse Rate 62 70 Respiratory 22 22 18 Rate Blood Pressure 122/61 127/76 O2 Sat by Pulse 95 Oximetry (%) Intake & Output 09/02/17 09/03/17 09/04/17 09/05/17 07:59 07:59 07:59 07:59 Intake Total 150 Balance 150 Weight 178 lb 9.6 oz NAD, calm JVD flat, neck supple ctab, nl effort rrr nl s1, s2. no mrg + bs soft nt nd ext without e/c/c + dp/pt, no carotid bruits no jaundice, diaphoresis aaox3 CBC, BMP 09/04/17 07:13 09/04/17 07:13 Laboratory Tests 09/03/17 09/04/17 09/04/17 19:11 07:13 14:07 Magnesium 1.6 L Total Bilirubin 2.8 H 2.7 H Direct Bilirubin 2.0 H AST 592 H 518 H ALT 83 H 72 Alkaline Phosphatase 161 H 133 H Creatine Kinase 301 H CK-MB (CK-2) Troponin I < 0.02 0.09 H 0.06 H Albumin 2.7 L TSH 3.35 09/04/17 14:07 Magnesium Total Bilirubin Direct Bilirubin AST ALT Alkaline Phosphatase Creatine Kinase 227 H CK-MB (CK-2) 1.972 Troponin I 0.06 H Albumin TSH 09/04/17 09/04/17 05:56 14:07 INR 1.06 U Marijuana (THC) Screen Positive EKG x 2 09/03: afib with rvr, 135 bpm and 129 bpm. low voltages. no acute ischemic changes. EKG 09/04: SR, low voltages. prolonged qtc 507 ms. non-specific t wave abnormalities in anterior leads. tele: sr abd u/s: hepatomegaly. AAA, ivc wnl. cxr: no acute pathology 51 yo smoker with pmhx of etoh abuse and polysubstance use, asthma, anemia, bipolar disorder, fibroids and skin disease (psoriasis and eczema), left hip oa , who p/w palps and found to have new onset afib with rvr complicated by leukopenia/thrombocytopenia, ab troponins and prolonged qtc. new onset afib with rvr in setting of thrombocytopenia - s/p spontaneous conversion to sr s/p diltiazem. con't dilt 30 mg po tid, if sbp stable --> can transition to long acting 120 mg po dailiy - ok to hold AC in light of low chads2-vasc and thrombocytopenia - echo pending - aggressive lyte repletion prn, tsh wnl - etoh cessation counseling. ab troponins. - minimally abnormal troponin with flat trend. Ekg without acute ischemic changes. no concern for acs. in light of co-morbidities would defer further ischemic work up at this time. Can consider as outpatient when acute issues resolve. - defer asa, statin in setting of thrombocytopenia, ab lft's. ongoing work up of thrombocytopenia, ab lft's per pmd. gi, heme. prolonged qtc - in setting of lyte abnormalities - would repeat after lytes repleted. avoid qtc prolonging drugs. Recommend alternative to zofran and protonix. + tobacco/polysubstance use - cessation counseling.
[2017-09-04] MEDS ORDERED: POTASSIUM CHLORIDE TABS 20 MEQ TABLET.ER (FP) PO ONE (17:30)
[2017-09-04] MEDS ORDERED: RIVAROXABAN 20 MG TABLET PO SCH (18:00)
[2017-09-04] MEDS ORDERED: SODIUM CHLORIDE 1,000 ML IV SCH (18:25)
--- NOTE | 2017-09-04 20:42 | EKG ---
Test Reason : Blood Pressure : / mmHG Vent. Rate : 061 BPM Atrial Rate : 061 BPM P-R Int : 176 ms QRS Dur : 092 ms QT Int : 504 ms P-R-T Axes : 045 051 053 degrees QTc Int : 507 ms NORMAL SINUS RHYTHM LOW VOLTAGE QRS CANNOT RULE OUT ANTERIOR INFARCT (CITED ON OR BEFORE 03-SEP-2017) PROLONGED QT ABNORMAL ECG WHEN COMPARED WITH ECG OF 03-SEP-2017 20:49, SINUS RHYTHM HAS REPLACED ATRIAL FIBRILLATION VENT. RATE HAS DECREASED BY 68 BPM NONSPECIFIC T WAVE ABNORMALITY NO LONGER EVIDENT IN LATERAL LEADS Confirmed by MARIA CHAVIS MD ([id number]) on 09/04/2017 8:41:59 PM Referred By: Lee Ann STEWARD Confirmed By:MARIA CHAVIS MD
[2017-09-05] MEDS: DILTIAZEM INJECTION 125 MG in SODIUM CHLORIDE 100 ML IVPB SCH (00:29)
[2017-09-05] MEDS: dilTIAZem HCL 30 MG TABLET (FP) PO SCH ×3 (05:52→23:03)
[2017-09-05 07:16] LABS: BASO % 0.7 % (0-2.0); EOS % 1.9 % (0-4.5); HEMATOCRIT 32.6 % (32.4-45.2); LYMPH % 20.9 % (8-40); MCH 34.8 pg (25.7-33.7); MCHC 33.6 g/dl (32.0-36.0); MEAN CELL VOLUME 103.3 fl (80-96); MEAN PLT VOLUME 8.5 fl (7.5-11.1); MONO % 9.5 % (3.8-10.2); PLATELET COUNT 80 K/MM3 (134-434); RBC 3.15 M/mm3 (3.60-5.2); RDW 17.4 % (11.6-15.6)
[2017-09-05 07:21] LABS: WHITE BLOOD COUNT 1.8 K/mm3 (4.0-10.0)
[2017-09-05 07:28] LABS: INR 1.04 (0.82-1.09); PROTHROMBIN TIME (PATIENT) 11.8 SEC (9.7-13.0)
[2017-09-05 07:44] LABS: CHLORIDE 101 mmol/L (98-107); MAGNESIUM 1.5 mg/dL (1.8-2.4); POTASSIUM 3.6 mmol/L (3.5-5.1); SODIUM 137 mmol/L (136-145)
[2017-09-05 08:02] LABS: ALBUMIN 2.8 g/dl (3.4-5.0); ALK PHOS 137 U/L (45-117); ANION GAP 12 (8-16); BILIRUBIN,DIRECT 2.9 mg/dL (0.0-0.2); BLOOD UREA NITROGEN 3 mg/dL (7-18); CALCIUM 7.6 mg/dL (8.5-10.1); CO2 24 mmol/L (21-32); CREATININE 0.5 mg/dL (0.55-1.02); GLUCOSE,RANDOM 57 mg/dL (74-106); LDH 323 U/L (84-246); PHOSPHOROUS 2.7 mg/dL (2.5-4.9); SGPT/ALT 67 U/L (12-78); TOT PROT 5.7 g/dl (6.4-8.2)
[2017-09-05 08:29] LABS: SGOT/AST 438 U/L (15-37)
[2017-09-05] MEDS ORDERED: RANITIDINE HCL 150 MG TABLET (FP) PO SCH (10:00)
[2017-09-05] MEDS ORDERED: MAGNESIUM 2GM/50ML STERILE WATER IVPB IVPB ONE (11:15)
[2017-09-05] MEDS: DEXTROSE 5%-NORMAL SALINE 1,000 ML IV SCH (11:20)
--- NOTE | 2017-09-05 11:34 | PN ---
Teaching Attending Note Name of Resident: True Bhandari ATTENDING PHYSICIAN STATEMENT I saw and evaluated the patient. I reviewed the resident's note and discussed the case with the resident. I agree with the resident's findings and plan as documented with exceptions below. SUBJECTIVE: Patient seen and examined. Reports dizziness with activity. No nausea, vomiting abdominal pain or diarrhea today. OBJECTIVE: Vital Signs Period Temp Pulse Resp BP Sys/Marie Pulse Ox Last 24 Hr 98.0 F-98.9 F 60-81 18-20 124-141/76-90 97-97 Intake & Output 09/02/17 09/03/17 09/04/17 09/05/17 23:59 23:59 23:59 23:59 Intake Total 590 950 Balance 590 950 Weight 183 lb 178 lb 9.6 oz General: lying in bed in no acute distress Chest: CTAB, no rales or wheezing CVS:S1s2 irregular Chest: CTAB, no rales or wheezing abdomen: soft, obese, hepatomegaly with tenderness along hepatic margin, NT otherwise, no voluntary or involuntary guarding or rigidity Extremities: no tremors noted today, Active Medications Generic Name Dose Route Start Last Admin Trade Name Freq PRN Reason Stop Dose Admin Diltiazem HCl 30 mg 09/03/17 22:00 09/05/17 05:52 Cardizem - PO 30 mg TID GERALDO Administration Diltiazem HCl 125 mg/ Sodium 125 mls @ 10 mls/hr 09/03/17 21:00 09/05/17 00: 29 Chloride IVPB Not Given TITR GERALDO Protocol 10 MG/HR Potassium Phosphate 30 mm/ 260 mls @ 62.5 mls/hr 09/05/17 10:30 Sodium Chloride IVPB 09/05/17 14:39 ONCE ONE Dextrose/Sodium Chloride 1,000 mls @ 100 mls/hr 09/05/17 10:45 09/05/17 11:20 D5-Ns - IV 100 mls/hr ASDIR GERALDO Administration Lorazepam 2 mg 09/04/17 10:23 09/04/17 11:38 Ativan - PO 2 mg Q6H PRN Administration WITHDRAWAL(CONT SUBST) Ondansetron HCl 4 mg 09/04/17 13:53 Zofran Injection IVPUSH Q12H PRN NAUSEA Ranitidine HCl 150 mg 09/05/17 10:00 09/05/17 10:00 Zantac - PO 150 mg BID GERALDO Administration Laboratory Results - last 24 hr 09/04/17 09/04/17 09/04/17 07:13 14:07 14:07 WBC RBC Hgb Hct MCV MCH MCHC RDW Plt Count MPV Neutrophils % Lymphocytes % Monocytes % Eosinophils % Basophils % Nucleated RBC % PT with INR 12.00 INR 1.06 PTT (Actin FS) 30.8 Sodium 142 Potassium 3.5 Chloride 106 Carbon Dioxide 22 Anion Gap 14 BUN 4 L Creatinine 0.5 L Creat Clearance w eGFR > 60 Random Glucose 50 L Calcium 7.3 L Phosphorus 3.8 Magnesium 1.6 L Ferritin Total Bilirubin 2.7 H Direct Bilirubin 2.0 H AST 518 H ALT 72 Alkaline Phosphatase 133 H LD Total Creatine Kinase Creatine Kinase Index CK-MB (CK-2) Troponin I 0.09 H 0.06 H Total Protein 5.9 L Albumin 2.7 L Vitamin B12 Serum Folate TSH 3.35 09/04/17 09/05/17 09/05/17 14:07 06:00 06:00 WBC 1.8 L* RBC 3.15 L Hgb 11.0 Hct 32.6 MCV 103.3 H MCH 34.8 H MCHC 33.6 RDW 17.4 H Plt Count 80 L MPV 8.5 Neutrophils % 67.0 Lymphocytes % 20.9 D Monocytes % 9.5 Eosinophils % 1.9 Basophils % 0.7 Nucleated RBC % 0 PT with INR 11.80 INR 1.04 PTT (Actin FS) Sodium Potassium Chloride Carbon Dioxide Anion Gap BUN Creatinine Creat Clearance w eGFR Random Glucose Calcium Phosphorus Magnesium Ferritin Total Bilirubin Direct Bilirubin AST ALT Alkaline Phosphatase LD Total Creatine Kinase 227 H Creatine Kinase Index 0.8 CK-MB (CK-2) 1.972 Troponin I 0.06 H Total Protein Albumin Vitamin B12 Serum Folate TSH 09/05/17 09/05/17 06:00 06:00 WBC RBC Hgb Hct MCV MCH MCHC RDW Plt Count MPV Neutrophils % Lymphocytes % Monocytes % Eosinophils % Basophils % Nucleated RBC % PT with INR INR PTT (Actin FS) Sodium 137 Potassium 3.6 Chloride 101 Carbon Dioxide 24 Anion Gap 12 BUN 3 L Creatinine 0.5 L Creat Clearance w eGFR Random Glucose 57 L Calcium 7.6 L Phosphorus 2.7 Magnesium 1.5 L Ferritin 605.387 H Total Bilirubin 4.0 H D Direct Bilirubin 2.9 H AST 438 H ALT 67 Alkaline Phosphatase 137 H LD Total 323 H Creatine Kinase Creatine Kinase Index CK-MB (CK-2) Troponin I Total Protein 5.7 L Albumin 2.8 L Vitamin B12 1979 H Serum Folate 17 TSH 2.78 MRCP done, reports pending ASSESSMENT AND PLAN: 51 yof with PMHx of asthma, anemia, bipolar disorder and skin disease ( psoriasis and eczema) , ETOH abuse, prior h/o detox admitted with palpitations, found with new onset Afib with RVR. -New onset Afib with RVR, intermittently in NSR -Alcohol abuse/Withdrawal, acute alcohol withdrawal syndrome, at risk for DT's -Abnormal LFTs, likely alcoholic hepatitis (MELD 12) , given direct hyperbilirubinemia, r/o obstructive biliary process -Leucopenia with absolute neutropenia, suspect from alcohol related bone marrow suppression, no clinical evidence of infection currently -Thrombocytopenia, likely from alcohol related bone suppression, possible sequestration from splenomegaly, r/o portal hypertension -Hypomagnesemia -Hypokalemia -Hypoglycemia, ?Poor po +/- hepatic concerns -Prolonged QTc -Bipolar disorder -Asthma Plan: Cardiology input appreciated. Repeat EKG today, Continue cardizem, follow up 2D echo, hold xarelto pending thrombocytopenia and worsening liver function. D/C IV ativan. SHort libirum taper if concerns. Patient unwilling for detox currently. GI input noted. MRCP done, called radiology for results. Trend LFTs for now. Follow up Hep panel. Neutropenic precautions, Hematology input appreciated. Trend CBC. Replete Mg/K/phos aggressively given prolonged QTc, repeat EKG today. D/c protonix, start ranitidine. Zofran with caution as needed. Start D5NS, monitor BGM. DVTPPX with SCDs for now. Dispo pending resolution of active medical issues. Plan discussed with patient ,RN and GI.
[2017-09-05] MEDS ORDERED: POTASSIUM PHOSPHATE 30 MM in SODIUM CHLORIDE 500 ML IVPB ONE (12:00)
--- NOTE | 2017-09-05 13:19 | PN ---
Physical Exam: SUBJECTIVE: Patient seen and examined at bedside. No complaints at this time. OBJECTIVE: Vital Signs Period Temp Pulse Resp BP Sys/Marie Pulse Ox Last 24 Hr 98.0 F-98.9 F 60-81 18-20 124-141/76-90 97-97 GENERAL: The patient is awake, alert, and fully oriented, in no acute distress. HEAD: Normal with no signs of trauma. EYES: PERRL, extraocular movements intact, sclera anicteric, conjunctiva clear. No ptosis. ENT: oropharynx clear without exudates, moist mucous membranes. NECK: Trachea midline, full range of motion, supple. LUNGS: Breath sounds equal, clear to auscultation bilaterally, no wheezes, no crackles, no accessory muscle use. HEART: Regular rate and rhythm, S1, S2 without murmur, rub or gallop. ABDOMEN: Soft, RUQ tender to deep palpation, nondistended, normoactive bowel sounds, no guarding, no rebound, hepatosplenomegaly, no masses. EXTREMITIES: 2+ pulses, warm, well-perfused, no edema. No tremor, no asterixis NEUROLOGICAL: Cranial nerves II through XII grossly intact. Normal speech, gait not observed. PSYCH: Normal mood, normal affect. SKIN: Warm, dry, normal turgor, no rashes or lesions noted Laboratory Results - last 24 hr 09/04/17 09/04/17 09/04/17 14:07 14:07 14:07 WBC RBC Hgb Hct MCV MCH MCHC RDW Plt Count MPV Neutrophils % Lymphocytes % Monocytes % Eosinophils % Basophils % Nucleated RBC % PT with INR 12.00 INR 1.06 PTT (Actin FS) 30.8 Sodium Potassium Chloride Carbon Dioxide Anion Gap BUN Creatinine POC Glucometer Random Glucose Calcium Phosphorus Magnesium Ferritin Total Bilirubin Direct Bilirubin AST ALT Alkaline Phosphatase LD Total Creatine Kinase 227 H Creatine Kinase Index 0.8 CK-MB (CK-2) 1.972 Troponin I 0.06 H 0.06 H Total Protein Albumin Vitamin B12 Serum Folate TSH 09/05/17 09/05/17 09/05/17 06:00 06:00 06:00 WBC 1.8 L* RBC 3.15 L Hgb 11.0 Hct 32.6 MCV 103.3 H MCH 34.8 H MCHC 33.6 RDW 17.4 H Plt Count 80 L MPV 8.5 Neutrophils % 67.0 Lymphocytes % 20.9 D Monocytes % 9.5 Eosinophils % 1.9 Basophils % 0.7 Nucleated RBC % 0 PT with INR 11.80 INR 1.04 PTT (Actin FS) Sodium 137 Potassium 3.6 Chloride 101 Carbon Dioxide 24 Anion Gap 12 BUN 3 L Creatinine 0.5 L POC Glucometer Random Glucose 57 L Calcium 7.6 L Phosphorus 2.7 Magnesium 1.5 L Ferritin Total Bilirubin 4.0 H D Direct Bilirubin 2.9 H AST 438 H ALT 67 Alkaline Phosphatase 137 H LD Total 323 H Creatine Kinase Creatine Kinase Index CK-MB (CK-2) Troponin I Total Protein 5.7 L Albumin 2.8 L Vitamin B12 Serum Folate 17 TSH 09/05/17 09/05/17 06:00 11:30 WBC RBC Hgb Hct MCV MCH MCHC RDW Plt Count MPV Neutrophils % Lymphocytes % Monocytes % Eosinophils % Basophils % Nucleated RBC % PT with INR INR PTT (Actin FS) Sodium Potassium Chloride Carbon Dioxide Anion Gap BUN Creatinine POC Glucometer 99 Random Glucose Calcium Phosphorus Magnesium Ferritin 605.387 H Total Bilirubin Direct Bilirubin AST ALT Alkaline Phosphatase LD Total Creatine Kinase Creatine Kinase Index CK-MB (CK-2) Troponin I Total Protein Albumin Vitamin B12 1979 H Serum Folate TSH 2.78 Active Medications Generic Name Dose Route Start Last Admin Trade Name Freq PRN Reason Stop Dose Admin Diltiazem HCl 30 mg 09/03/17 22:00 09/05/17 05:52 Cardizem - PO 30 mg TID GERALDO Administration Diltiazem HCl 125 mg/ Sodium 125 mls @ 10 mls/hr 09/03/17 21:00 09/05/17 00: 29 Chloride IVPB Not Given TITR GERALDO Protocol 10 MG/HR Potassium Phosphate 30 mm/ 510 mls @ 62.5 mls/hr 09/05/17 12:00 09/05/17 12: 36 Sodium Chloride IVPB 09/05/17 20:09 62.5 mls/hr ONCE ONE Administration Dextrose/Sodium Chloride 1,000 mls @ 100 mls/hr 09/05/17 10:45 09/05/17 11:20 D5-Ns - IV 100 mls/hr ASDIR GERALDO Administration Lorazepam 2 mg 09/04/17 10:23 09/04/17 11:38 Ativan - PO 2 mg Q6H PRN Administration WITHDRAWAL(CONT SUBST) Ondansetron HCl 4 mg 09/04/17 13:53 Zofran Injection IVPUSH Q12H PRN NAUSEA Ranitidine HCl 150 mg 09/06/17 10:00 Zantac - PO DAILY GERALDO ASSESSMENT/PLAN: Pt is a 51 F with PMHx of asthma, anemia, bipolar disorder and skin disease ( psoriasis and eczema), ETOH abuse, prior h/o detox who presented to ED with complaint of palpitations and SOB. She was admitted with new onset Afib with RVR and EtOH withdrawal. #pAF w/ RVR -in sinus at this time -CHADsVASC 1 -TSH normal -Utox pos for THC -Echo pending -Cardio on board -Cardizem #EtOH abuse -Pt admits to 1/2 pint vodka -withdrawal symptoms on admission. None at this time #Hepatitis -likely 2/2 EtOH abuse -MELD 12 -U/S (09/03/2017): hepatomegally -transaminitis -hyperbilirubinemia -Abd MRI (09/05/2017): postero-inferior perihepatic fluid. no ductal dilation, no stones. No finding suspicious for malignancy. -f/u hepatitis panel -GI on board #Leukopenia, thrombocytopenia -? 2/2 EtOH BM suppression -immune work up pending #hypoglycemia -? related to liver disease -on D5 (hold for BGM consistently > 100) #Asthma -stable -continue inhaler on d/c #Bipolar disorder -stable at this time -Resume home meds on D/C #FEN -On D5/NS -hypomagnesemia. Repleted -neutropenic cardiac diet #PPx -Hold AC antiplatelet in setting of thrombocytopenia -Ranitidine #Dispo -admitted for new afib, liver disease, and etoh withdrawal True Bhandari MD PGY-1 IM Visit type - Emergency Visit Emergency Visit: No - New Patient This patient is new to me today: Yes Date on this admission: 09/05/17 - Critical Care Critical Care patient: No - Discharge Referral Referred to [facility] Med P.C.: No
--- NOTE | 2017-09-05 13:45 | EKG ---
Test Reason : Blood Pressure : / mmHG Vent. Rate : 061 BPM Atrial Rate : 061 BPM P-R Int : 176 ms QRS Dur : 090 ms QT Int : 528 ms P-R-T Axes : 044 031 041 degrees QTc Int : 531 ms NORMAL SINUS RHYTHM LOW VOLTAGE QRS POOR R WAVE PROGRESSION PROLONGED QT ABNORMAL ECG WHEN COMPARED WITH ECG OF 04-SEP-2017 13:25, T WAVE INVERSION NO LONGER EVIDENT IN ANTERIOR LEADS CLINICAL CORRELATION IS RECOMMENDED Confirmed by MANI CLAUDIO, PHILIPPE ([id number]) on 09/05/2017 1:45:10 PM Referred By: Lee Ann STEWARD Confirmed By:PHILIPPE SINGLETON MD
[2017-09-05] MEDS: THIAMINE HCL 100 MG TABLET (FP) PO SCH (17:14)
[2017-09-05] MEDS: FOLIC ACID 1 MG TABLET (FP) PO SCH (17:15)
[2017-09-05] MEDS ORDERED: chlordiazePOXIDE HCL 25 MG CAPSULE PO PRN (17:55)
[2017-09-05] MEDS: chlordiazePOXIDE HCL 25 MG CAPSULE PO SCH ×2 (18:09→23:03)
--- NOTE | 2017-09-05 19:53 | PN ---
Progress Note (short form) - Note Progress Note: CC: afib with rvr S: no cp, palps, dizziness, sob. remains in sr. Current Medications Chlordiazepoxide HCl (Librium -) 50 mg PO T0C-DHR [facility] Stop: 09/06/17 11:01 Last Admin: 09/05/17 18:09 Dose: 50 mg Chlordiazepoxide HCl (Librium -) 25 mg PO [id number] [facility] Stop: 09/07/17 11:01 Chlordiazepoxide HCl (Librium -) 15 mg PO [id number] [facility] Stop: 09/08/17 11:01 Chlordiazepoxide HCl (Librium -) 25 mg PO Q4H PRN PRN Reason: WITHDRAWAL(CONT SUBST) Stop: 09/08/17 17:54 Diltiazem HCl (Cardizem -) 30 mg PO TID [facility] Last Admin: 09/05/17 14:05 Dose: 30 mg Folic Acid (Folic Acid -) 1 mg PO DAILY [facility] Last Admin: 09/05/17 17:15 Dose: 1 mg Potassium Phosphate 30 mm/ (Sodium Chloride) 510 mls @ 62.5 mls/hr IVPB ONCE ONE Stop: 09/05/17 20:09 Last Admin: 09/05/17 12:36 Dose: 62.5 mls/hr Dextrose/Sodium Chloride (D5-Ns -) 1,000 mls @ 100 mls/hr IV ASDIR [facility] Last Admin: 09/05/17 11:20 Dose: 100 mls/hr Ranitidine HCl (Zantac -) 150 mg PO DAILY [facility] Thiamine HCl (Vitamin B1 -) 100 mg PO DAILY [facility] Last Admin: 09/05/17 17:14 Dose: 100 mg Vital Signs - 24 hr 09/04/17 09/05/17 09/05/17 21:03 00:29 00:58 Temperature 98.1 F 98.9 F Pulse Rate 78 60 67 Respiratory 18 18 Rate Blood Pressure 141/86 124/81 124/81 O2 Sat by Pulse Oximetry (%) 09/05/17 09/05/17 09/05/17 01:02 05:04 06:05 Temperature 98.9 F Pulse Rate 79 81 Respiratory 18 18 18 Rate Blood Pressure 134/90 O2 Sat by Pulse 97 Oximetry (%) 09/05/17 09/05/17 09/05/17 07:56 07:57 14:17 Temperature 98.8 F 98.6 F Pulse Rate 74 69 Respiratory 18 18 18 Rate Blood Pressure 127/82 130/82 O2 Sat by Pulse 97 97 Oximetry (%) 09/05/17 18:00 Temperature 98.1 F Pulse Rate 75 Respiratory 18 Rate Blood Pressure 125/77 O2 Sat by Pulse Oximetry (%) Intake & Output 09/03/17 09/04/17 09/05/17 09/06/17 07:59 07:59 07:59 07:59 Intake Total 150 1390 1999 Balance 150 1390 1999 Weight 178 lb 9.6 oz NAD, calm JVD flat, neck supple ctab, nl effort rrr nl s1, s2. no mrg + bs soft nt nd ext without e/c/c + dp/pt, no carotid bruits no jaundice, diaphoresis aaox3 CBC, BMP 09/05/17 06:00 09/05/17 06:00 Laboratory Tests 09/05/17 09/05/17 09/05/17 06:00 06:00 15:10 Magnesium 1.5 L 2.0 Total Bilirubin 4.0 H D Direct Bilirubin 2.9 H AST 438 H ALT 67 Alkaline Phosphatase 137 H LD Total 323 H Albumin 2.8 L TSH 2.78 EKG x 2 09/03: afib with rvr, 135 bpm and 129 bpm. low voltages. no acute ischemic changes. EKG 09/04: SR, low voltages. prolonged qtc 507 ms. non-specific t wave abnormalities in anterior leads. tele: sr, sinus tach with ambulation to bathroom abd u/s: hepatomegaly. AAA, ivc wnl. abd MRI: no sig ab. cxr: no acute pathology ASSESSMENT/PLAN 51 yo smoker with pmhx of etoh abuse and polysubstance use, asthma, anemia, bipolar disorder, fibroids and skin disease (psoriasis and eczema), left hip oa , who p/w palps and found to have new onset afib with rvr complicated by leukopenia/thrombocytopenia, ab troponins and prolonged qtc. new onset afib with rvr in setting of thrombocytopenia - s/p spontaneous conversion to sr s/p diltiazem. con't dilt 30 mg po tid, if sbp stable --> can transition to long acting 120 mg po dailiy - back in SR, ok to hold AC in light of low chads2-vasc and thrombocytopenia. - echo pending - aggressive lyte repletion prn, needing ongoing repletion. tsh wnl - etoh cessation counseling. ab troponins. - minimally abnormal troponin with flat trend. Ekg without acute ischemic changes. no concern for acs. in light of co-morbidities would defer further ischemic work up at this time. Can consider as outpatient when acute issues resolve. - defer asa, statin in setting of thrombocytopenia, ab lft's. ongoing work up of thrombocytopenia, ab lft's per pmd. gi, heme. prolonged qtc - in setting of lyte abnormalities - would repeat after lytes repleted. avoid qtc prolonging drugs. Recommend alternative to zofran and protonix. + tobacco/polysubstance use - cessation counseling.
[2017-09-06] MEDS: chlordiazePOXIDE HCL 25 MG CAPSULE PO SCH ×4 (05:31→22:24)
[2017-09-06] MEDS: dilTIAZem HCL 30 MG TABLET (FP) PO SCH ×3 (05:31→17:03)
[2017-09-06 06:11] LABS: SERUM IRON SATURATION 88 % (15-55); TOTAL IRON BINDING CAPACITY 137 ug/dL (250-450); UIBC 17 ug/dL (131-425)
[2017-09-06 07:02] LABS: BASO % 0.9 % (0-2.0); EOS % 2.5 % (0-4.5); HEMATOCRIT 32.3 % (32.4-45.2); HEMOGLOBIN 10.9 GM/dL (10.7-15.3); LYMPH % 22.8 % (8-40); MCH 35.1 pg (25.7-33.7); MCHC 33.7 g/dl (32.0-36.0); MEAN CELL VOLUME 104.1 fl (80-96); MEAN PLT VOLUME 9.5 fl (7.5-11.1); MONO % 7.8 % (3.8-10.2); PLATELET COUNT 85 K/MM3 (134-434); RDW 17.4 % (11.6-15.6); WHITE BLOOD COUNT 2.3 K/mm3 (4.0-10.0)
[2017-09-06 07:20] LABS: ALBUMIN 2.7 g/dl (3.4-5.0); ANION GAP 8 (8-16); CALCIUM 8.3 mg/dL (8.5-10.1); CHLORIDE 101 mmol/L (98-107); CO2 29 mmol/L (21-32); GLUCOSE,RANDOM 103 mg/dL (74-106); INR 1.07 (0.82-1.09); MAGNESIUM 1.6 mg/dL (1.8-2.4); PHOSPHOROUS 3.6 mg/dL (2.5-4.9); POTASSIUM 3.5 mmol/L (3.5-5.1); PROTHROMBIN TIME (PATIENT) 12.1 SEC (9.7-13.0); SODIUM 138 mmol/L (136-145)
[2017-09-06 07:24] LABS: ALK PHOS 135 U/L (45-117); BILIRUBIN,TOTAL 4.2 mg/dL (0.2-1.0); BLOOD UREA NITROGEN 1 mg/dL (7-18); CREATININE 0.5 mg/dL (0.55-1.02); SGOT/AST 333 U/L (15-37); SGPT/ALT 63 U/L (12-78); TOT PROT 5.8 g/dl (6.4-8.2)
[2017-09-06] MEDS: FOLIC ACID 1 MG TABLET (FP) PO SCH (09:55)
[2017-09-06] MEDS: RANITIDINE HCL 150 MG TABLET (FP) PO SCH (09:56)
[2017-09-06] MEDS: THIAMINE HCL 100 MG TABLET (FP) PO SCH ×2 (09:56→22:24)
[2017-09-06] MEDS: DEXTROSE 5%-NORMAL SALINE 1,000 ML IV SCH (09:56)
[2017-09-06] MEDS ORDERED: MAGNESIUM 2GM/50ML STERILE WATER IVPB IVPB ONE (11:32)
[2017-09-06] MEDS ORDERED: MAGNESIUM OXIDE 400 MG TABLET (FP) PO SCH (11:33)
--- NOTE | 2017-09-06 13:14 | PN ---
Teaching Attending Note Name of Resident: True Bhandari ATTENDING PHYSICIAN STATEMENT I saw and evaluated the patient. I reviewed the resident's note and discussed the case with the resident. I agree with the resident's findings and plan as documented. SUBJECTIVE:says she feels better with librium. denies CP, SOB, fever, chills, N/ V/C/D, PAGE, anxiety or agitation states she often see shadows but has not seen them since being on the librium OBJECTIVE: Last Vital Signs Temp Pulse Resp BP Pulse Ox 98.1 F 88 18 122/76 99 09/06/17 05:46 09/06/17 05:46 09/06/17 07:44 09/06/17 05:46 09/06/17 07:44 General NAD, resting comfortable CV S1 S2 RRR no murmur/rub/gallop Lungs CTA no wheezing/rales/rhonchi Extremities no tremors, no diaphoresis ASSESSMENT AND PLAN: 51 yo F with PMHx of asthma, anemia, bipolar disorder and skin disease ( psoriasis and eczema) , ETOH abuse, prior h/o detox admitted with palpitations, found with new onset Afib with RVR. 1. New onset Afib with RVR, intermittently in NSR- rate has been controlled on cardizem. plan to transition to CD tomorrow if BP remains stable. unable to start anticoagulation due to thrombocytopenia and risks of bleeding. cardio on board 2. Acute ETOH withdrawal- CIWA 0. on librium taper. would cont taper inhouse as pt is on neutropenic precautions. counseled on risks assoc iwth drinking and damage already developed due to ETOH. not interested in inpatient rehab at this time. thiaimine/folate/mvi 3. Abnormal LFTs, likely alcoholic hepatitis (MELD 12) , given direct hyperbilirubinemia, r/o obstructive biliary process- MRCP negative for obstruction. hepatitis panel pending. LFT stable. GI on board 4. Leucopenia with absolute neutropenia, suspect from alcohol related bone marrow suppression, no clinical evidence of infection currently- cont neutropenic precautions. hematology on board. workup sent 5. Thrombocytopenia, likely from alcohol related bone suppression, possible sequestration from splenomegaly, r/o portal hypertension 6. Hypomagnesemia- MG iv and po 7. Hypokalemia- resolved 8. Hypoglycemia, ?Poor po +/- hepatic concerns- improved. will d/c IVF and monitor 9. Prolonged QTc 10. Bipolar disorder 11. Asthma 12. DVT ppx- SCD. would not give hep sq given thrombocytopenia
--- NOTE | 2017-09-06 13:29 | EKG ---
Test Reason : Blood Pressure : / mmHG Vent. Rate : 075 BPM Atrial Rate : 075 BPM P-R Int : 160 ms QRS Dur : 088 ms QT Int : 452 ms P-R-T Axes : 059 048 047 degrees QTc Int : 504 ms NORMAL SINUS RHYTHM LOW VOLTAGE QRS CANNOT RULE OUT ANTERIOR INFARCT (CITED ON OR BEFORE 06-SEP-2017) PROLONGED QT ABNORMAL ECG WHEN COMPARED WITH ECG OF 05-SEP-2017 09:39, NO SIGNIFICANT CHANGE WAS FOUND Confirmed by MD Edna, Raghu ([id number]) on 09/06/2017 1:29:48 PM [facility] Confirmed By:Raghu Bishop MD
--- NOTE | 2017-09-06 14:10 | PN ---
Progress Note (short form) - Note Progress Note: CC: afib with rvr S: no cp, palps, dizziness, sob. remains in sr. increased diltiazem to q6h to see if it would help suppress tachycardia with ambulation yesterday, but today bp running low. started on librium last night. Current Medications Chlordiazepoxide HCl (Librium -) 25 mg PO [id number] [facility] Stop: 09/07/17 11:01 Last Admin: 09/06/17 16:51 Dose: 25 mg Chlordiazepoxide HCl (Librium -) 15 mg PO [id number] [facility] Stop: 09/08/17 11:01 Chlordiazepoxide HCl (Librium -) 25 mg PO Q4H PRN PRN Reason: WITHDRAWAL(CONT SUBST) Stop: 09/08/17 17:54 Diltiazem HCl (Cardizem -) 30 mg PO Q6HPO [facility] Last Admin: 09/06/17 17:03 Dose: 30 mg Folic Acid (Folic Acid -) 1 mg PO DAILY [facility] Last Admin: 09/06/17 09:55 Dose: 1 mg Magnesium Oxide (Mag-Ox -) 400 mg PO DAILY [facility] Last Admin: 09/06/17 11:55 Dose: 400 mg Multivit/Folic Acid/Iron ( Vitamins (Sjr) -) 1 tab PO DAILY [facility] Ranitidine HCl (Zantac -) 150 mg PO DAILY [facility] Last Admin: 09/06/17 09:56 Dose: 150 mg Thiamine HCl (Vitamin B1 -) 100 mg PO [facility] Vital Signs - 24 hr 09/05/17 09/05/17 09/05/17 21:00 22:00 23:10 Temperature 99.0 F Pulse Rate 66 91 H Respiratory 18 18 18 Rate Blood Pressure 126/79 127/86 O2 Sat by Pulse 99 Oximetry (%) 09/06/17 09/06/17 09/06/17 02:00 05:46 07:44 Temperature 98.8 F 98.1 F Pulse Rate 83 88 Respiratory 20 18 18 Rate Blood Pressure 105/67 122/76 O2 Sat by Pulse 99 Oximetry (%) 09/06/17 09/06/17 09/06/17 10:00 14:00 17:00 Temperature 98.4 F 98.2 F Pulse Rate 68 62 Respiratory 18 20 Rate Blood Pressure 109/69 94/63 O2 Sat by Pulse Oximetry (%) Intake & Output 09/04/17 09/05/17 09/06/17 09/07/17 07:59 07:59 07:59 07:59 Intake Total 150 1390 3200 1540 Balance 150 1390 3200 1540 Weight 178 lb 9.6 oz NAD, calm JVD flat, neck supple ctab, nl effort rrr nl s1, s2. no mrg + bs soft nt nd ext without e/c/c + dp/pt, no carotid bruits no jaundice, diaphoresis aaox3 CBC, BMP 09/06/17 06:00 09/06/17 06:00 Laboratory Tests 09/05/17 09/05/17 09/06/17 06:00 15:10 06:00 Plt Count 80 L Magnesium 2.0 1.6 L Total Bilirubin 4.2 H AST 333 H ALT 63 Alkaline Phosphatase 135 H Albumin 2.7 L EKG x 2 09/03: afib with rvr, 135 bpm and 129 bpm. low voltages. no acute ischemic changes. EKG 09/04: SR, low voltages. prolonged qtc 507 ms. non-specific t wave abnormalities in anterior leads. tele: sr, sinus tach with ambulation abd u/s: hepatomegaly. AAA, ivc wnl. cxr: no acute pathology 51 yo smoker with pmhx of etoh abuse and polysubstance use, asthma, anemia, bipolar disorder, fibroids and skin disease (psoriasis and eczema), left hip oa , who p/w palps and found to have new onset afib with rvr complicated by thrombocytopenia new onset afib with rvr in setting of thrombocytopenia --> now in sr - s/p spontaneous conversion to sr s/p diltiazem. no recurrence on dilt 30 mg po tid, but uptitrated to qid yesterday b/c was having tachycardia with ambulation. Today bp running low so will change back to 30 mg tid. - back in sr (sinus tach when ambulating). ok to hold AC in light of low chads2- vasc and thrombocytopenia - echo pending - aggressive lyte repletion prn, tsh wnl - etoh cessation counseling. detox following. ab troponins. - minimally abnormal troponin with flat trend. Ekg without acute ischemic changes. no concern for acs. in light of co-morbidities would defer further ischemic work up at this time. Can consider as outpatient when acute issues resolve. - defer asa, statin in setting of thrombocytopenia, ab lft's. ongoing work up of thrombocytopenia, ab lft's per pmd. gi, heme. prolonged qtc - in setting of lyte abnormalities which persist. - would repeat after lytes repleted. avoid qtc prolonging drugs. + tobacco/polysubstance use - cessation counseling. detox following.
--- NOTE | 2017-09-06 15:00 | PN ---
Physical Exam: SUBJECTIVE: Patient seen and examined at bedside. No complaints at this time. OBJECTIVE: Vital Signs Period Temp Pulse Resp BP Sys/Marie Pulse Ox Last 24 Hr 98.1 F-99.0 F 66-91 18-20 105-127/67-86 99-99 GENERAL: The patient is awake, alert, and fully oriented, in no acute distress. HEAD: Normal with no signs of trauma. EYES: sclera anicteric, conjunctiva clear. No ptosis. ENT: oropharynx clear without exudates, moist mucous membranes. NECK: Trachea midline, full range of motion, supple. LUNGS: Breath sounds equal, clear to auscultation bilaterally, no wheezes, no crackles, no accessory muscle use. HEART: Regular rate and rhythm, S1, S2 without murmur, rub or gallop. ABDOMEN: Soft, RUQ nontender today, nondistended, normoactive bowel sounds, no guarding, no rebound, hepatosplenomegaly noted, no masses. EXTREMITIES: 2+ pulses, warm, well-perfused, no edema. No tremor, no asterixis NEUROLOGICAL:Normal speech, gait not observed. PSYCH: Normal mood, normal affect. SKIN: Warm, dry, normal turgor, no rashes or lesions noted Laboratory Results - last 24 hr 09/05/17 09/05/17 09/05/17 06:00 15:10 17:12 WBC RBC Hgb Hct MCV MCH MCHC RDW Plt Count MPV Neutrophils % Lymphocytes % Monocytes % Eosinophils % Basophils % Nucleated RBC % PT with INR INR Sodium Potassium Chloride Carbon Dioxide Anion Gap BUN Creatinine Creat Clearance w eGFR POC Glucometer 133 Random Glucose Calcium Phosphorus Magnesium 2.0 Iron 120 TIBC 137 L Iron Saturation 88 H Total Bilirubin AST ALT Alkaline Phosphatase Total Protein Albumin 09/05/17 09/06/17 09/06/17 21:36 05:41 06:00 WBC 2.3 L RBC 3.10 L Hgb 10.9 Hct 32.3 L MCV 104.1 H MCH 35.1 H MCHC 33.7 RDW 17.4 H Plt Count 85 L MPV 9.5 D Neutrophils % 66.0 Lymphocytes % 22.8 Monocytes % 7.8 Eosinophils % 2.5 Basophils % 0.9 Nucleated RBC % 0 PT with INR INR Sodium Potassium Chloride Carbon Dioxide Anion Gap BUN Creatinine Creat Clearance w eGFR POC Glucometer 126 99 Random Glucose Calcium Phosphorus Magnesium Iron TIBC Iron Saturation Total Bilirubin AST ALT Alkaline Phosphatase Total Protein Albumin 09/06/17 09/06/17 06:00 06:00 WBC RBC Hgb Hct MCV MCH MCHC RDW Plt Count MPV Neutrophils % Lymphocytes % Monocytes % Eosinophils % Basophils % Nucleated RBC % PT with INR 12.10 INR 1.07 Sodium 138 Potassium 3.5 Chloride 101 Carbon Dioxide 29 Anion Gap 8 BUN 1 L* Creatinine 0.5 L Creat Clearance w eGFR > 60 POC Glucometer Random Glucose 103 Calcium 8.3 L Phosphorus 3.6 Magnesium 1.6 L Iron TIBC Iron Saturation Total Bilirubin 4.2 H AST 333 H ALT 63 Alkaline Phosphatase 135 H Total Protein 5.8 L Albumin 2.7 L Active Medications Generic Name Dose Route Start Last Admin Trade Name Freq PRN Reason Stop Dose Admin Chlordiazepoxide HCl 25 mg 09/06/17 17:00 Librium - PO 09/07/17 11:01 [id number] GERALDO Chlordiazepoxide HCl 15 mg 09/07/17 17:00 Librium - PO 09/08/17 11:01 [id number] GERALDO Chlordiazepoxide HCl 25 mg 09/05/17 17:55 Librium - PO 09/08/17 17:54 Q4H PRN WITHDRAWAL(CONT SUBST) Diltiazem HCl 30 mg 09/06/17 00:00 09/06/17 11:54 Cardizem - PO 30 mg Q6HPO GERALDO Administration Folic Acid 1 mg 09/05/17 15:00 09/06/17 09:55 Folic Acid - PO 1 mg DAILY GERALDO Administration Magnesium Oxide 400 mg 09/06/17 11:33 09/06/17 11:55 Mag-Ox - PO 400 mg DAILY GERALDO Administration Multivit/Folic Acid/Iron 1 tab 09/07/17 10:00 Vitamins (Sjr) - PO DAILY GERALDO Ranitidine HCl 150 mg 09/06/17 10:00 09/06/17 09:56 Zantac - PO 150 mg DAILY GERALDO Administration Thiamine HCl 100 mg 09/05/17 15:00 09/06/17 09:56 Vitamin B1 - PO 100 mg DAILY GERALDO Administration ASSESSMENT/PLAN: Pt is a 51 F with PMHx of asthma, anemia, bipolar disorder and skin disease ( psoriasis and eczema), ETOH abuse, prior h/o detox who presented to ED with complaint of palpitations and SOB. She was admitted with new onset Afib with RVR and EtOH withdrawal. #pAF w/ RVR -in sinus at this time -CHADsVASC 1 -TSH normal -Utox pos for THC -Echo pending -Cardio on board -Cardizem #EtOH abuse -Pt admits to 1/2 pint vodka -Librium protocol for withdrawal #Hepatitis -likely 2/2 EtOH abuse -MELD 12 -U/S (09/03/2017): hepatomegally -transaminitis -hyperbilirubinemia -Abd MRI (09/05/2017): postero-inferior perihepatic fluid. no ductal dilation, no stones. No finding suspicious for malignancy. -hepatitis panel pending -GI on board #Leukopenia, thrombocytopenia -? 2/2 EtOH BM suppression -immune work up pending #hypoglycemia -? related to liver disease -on D5 (hold for BGM consistently > 100) #Asthma -stable -continue inhaler on d/c #Bipolar disorder -stable at this time -Resume home meds on D/C #FEN -On D5/NS -persistent hypomagnesemia. Repleting -neutropenic cardiac diet #PPx -Hold AC antiplatelet in setting of thrombocytopenia -Ranitidine #Dispo -admitted for new afib, liver disease, and etoh withdrawal True Bhandari MD PGY-1 IM Visit type - Emergency Visit Emergency Visit: No - New Patient This patient is new to me today: No - Critical Care Critical Care patient: No - Discharge Referral Referred to [facility] Med P.C.: No
--- NOTE | 2017-09-06 16:32 | CONSULT ---
Consult Detox [facility] Reason for Current Admission/Consult: substance use Referred by:: joss talamantes - Alcohol/Substance Use Hx Alcohol Use: Yes - Past Medical History ...: No Psych: Yes: Addictions (ETOH abuse) Musculoskeletal: Yes: Other ("Left hip problem" and uses cane to aid in ambulation) - Past Surgical History Additional Surgical History: Denies Assessment Plan - Diagnosis (1) Alcohol dependence with uncomplicated withdrawal Status: Acute (2) Atrial fibrillation with rapid ventricular response Status: Acute (3) DVT prophylaxis Status: Acute (4) Elevated LFTs Status: Acute - Plan Plan: chart, imaging, labs reviewed. 51 yo f with new onset af w rapid ventricular respons, heavy alcohl use and alchol wihdrawal syndrome started on libirum detox with good efect. Cont as oredered, fluids and vitamins. Consider outpatient counseling or inpatient rehab when medicallys table. - Medication Detox Regimen/Protocol: Librium
[2017-09-06] MEDS ORDERED: POTASSIUM CHLORIDE TABS 20 MEQ TABLET.ER (FP) PO ONE (19:15)
[2017-09-07] MEDS: chlordiazePOXIDE HCL 25 MG CAPSULE PO SCH (05:27)
[2017-09-07] MEDS: dilTIAZem HCL 30 MG TABLET (FP) PO SCH ×3 (05:29→22:21)
[2017-09-07 06:06] LABS: HBSAG SCREEN Negative (Negative); HEP B CORE AB, TOT Negative (Negative)
--- NOTE | 2017-09-07 07:11 | PN ---
Physical Exam: SUBJECTIVE: Patient seen and examined at bedside. No acute events. slept through the night. OBJECTIVE: Vital Signs Period Temp Pulse Resp BP Sys/Marie Pulse Ox Last 24 Hr 98.2 F-99 F 62-68 18-20 94-111/62-69 98-99 unchanged GENERAL: The patient is awake, alert, and fully oriented, in no acute distress. HEAD: Normal with no signs of trauma. EYES: sclera anicteric, conjunctiva clear. No ptosis. ENT: oropharynx clear without exudates, moist mucous membranes. NECK: Trachea midline, full range of motion, supple. LUNGS: Breath sounds equal, clear to auscultation bilaterally, no wheezes, no crackles, no accessory muscle use. HEART: Regular rate and rhythm, S1, S2 without murmur, rub or gallop. ABDOMEN: Soft, RUQ nontender today, nondistended, normoactive bowel sounds, no guarding, no rebound, hepatosplenomegaly noted, no masses. EXTREMITIES: 2+ pulses, warm, well-perfused, no edema. No tremor, no asterixis NEUROLOGICAL:Normal speech, gait not observed. PSYCH: Normal mood, normal affect. SKIN: Warm, dry, normal turgor, no rashes or lesions noted Laboratory Results - last 24 hr 09/06/17 09/06/17 09/06/17 06:00 06:00 06:00 WBC 2.3 L RBC 3.10 L Hgb 10.9 Hct 32.3 L MCV 104.1 H MCH 35.1 H MCHC 33.7 RDW 17.4 H Plt Count 85 L MPV 9.5 D Neutrophils % 66.0 Lymphocytes % 22.8 Monocytes % 7.8 Eosinophils % 2.5 Basophils % 0.9 Nucleated RBC % 0 PT with INR 12.10 INR 1.07 Sodium Potassium Chloride Carbon Dioxide Anion Gap BUN Creatinine Creat Clearance w eGFR POC Glucometer Random Glucose Calcium Phosphorus Magnesium Total Bilirubin AST ALT Alkaline Phosphatase Total Protein Albumin Hepatitis A Ab Total Negative Hep Bs Antigen Negative Hep Bs Antibody Non reactive Hep B Core Total Ab Negative 09/06/17 09/06/17 09/06/17 06:00 16:44 22:06 WBC RBC Hgb Hct MCV MCH MCHC RDW Plt Count MPV Neutrophils % Lymphocytes % Monocytes % Eosinophils % Basophils % Nucleated RBC % PT with INR INR Sodium 138 Potassium 3.5 Chloride 101 Carbon Dioxide 29 Anion Gap 8 BUN 1 L* Creatinine 0.5 L Creat Clearance w eGFR > 60 POC Glucometer 120 103 Random Glucose 103 Calcium 8.3 L Phosphorus 3.6 Magnesium 1.6 L Total Bilirubin 4.2 H AST 333 H ALT 63 Alkaline Phosphatase 135 H Total Protein 5.8 L Albumin 2.7 L Hepatitis A Ab Total Hep Bs Antigen Hep Bs Antibody Hep B Core Total Ab 09/07/17 06:02 WBC RBC Hgb Hct MCV MCH MCHC RDW Plt Count MPV Neutrophils % Lymphocytes % Monocytes % Eosinophils % Basophils % Nucleated RBC % PT with INR INR Sodium Potassium Chloride Carbon Dioxide Anion Gap BUN Creatinine Creat Clearance w eGFR POC Glucometer 84 Random Glucose Calcium Phosphorus Magnesium Total Bilirubin AST ALT Alkaline Phosphatase Total Protein Albumin Hepatitis A Ab Total Hep Bs Antigen Hep Bs Antibody Hep B Core Total Ab Active Medications Generic Name Dose Route Start Last Admin Trade Name Freq PRN Reason Stop Dose Admin Chlordiazepoxide HCl 25 mg 09/06/17 17:00 09/07/17 05:27 Librium - PO 09/07/17 11:01 25 mg [id number] GERALDO Administration Chlordiazepoxide HCl 15 mg 09/07/17 17:00 Librium - PO 09/08/17 11:01 [id number] GERALDO Chlordiazepoxide HCl 25 mg 09/05/17 17:55 Librium - PO 09/08/17 17:54 Q4H PRN WITHDRAWAL(CONT SUBST) Diltiazem HCl 30 mg 09/07/17 06:00 09/07/17 05:29 Cardizem - PO 30 mg TID GERALDO Administration Folic Acid 1 mg 09/05/17 15:00 09/06/17 09:55 Folic Acid - PO 1 mg DAILY GERALDO Administration Magnesium Oxide 400 mg 09/06/17 11:33 09/06/17 11:55 Mag-Ox - PO 400 mg DAILY GERALDO Administration Multivit/Folic Acid/Iron 1 tab 09/07/17 10:00 Vitamins (Sjr) - PO DAILY GERALDO Ranitidine HCl 150 mg 09/06/17 10:00 09/06/17 09:56 Zantac - PO 150 mg DAILY GERALDO Administration Thiamine HCl 100 mg 09/06/17 22:00 09/06/17 22:24 Vitamin B1 - PO 100 mg HS GERALDO Administration ASSESSMENT/PLAN: Pt is a 51 F with PMHx of asthma, anemia, bipolar disorder and skin disease ( psoriasis and eczema), ETOH abuse, prior h/o detox who presented to ED with complaint of palpitations and SOB. She was admitted with new onset Afib with RVR and EtOH withdrawal. #pAF w/ RVR -in sinus at this time -CHADsVASC 1 -TSH normal -Utox pos for THC -Echo wnl -Cardio on board -Cardizem. Will switch to long-acting on d/c #EtOH abuse -Pt admits to / pint vodka -Librium protocol for withdrawal -Pt not showing any signs of w/drawal at this time #Hepatitis -likely 2/2 EtOH abuse -MELD 12 -U/S (09/03/2017): hepatomegally -transaminitis -hyperbilirubinemia -Abd MRI (09/05/2017): postero-inferior perihepatic fluid. no ductal dilation, no stones. No finding suspicious for malignancy. -hepatitis panel neg -GI on board #Leukopenia, thrombocytopenia -? 2/2 EtOH BM suppression -immunology work up pending #hypoglycemia -? related to liver disease -on D5 (hold for BGM consistently > 100) -Sugars stable at this time #Asthma -stable -continue inhaler on d/c #Bipolar disorder -stable at this time -Resume home meds on D/C #FEN -On D5/NS -persistent hypomagnesemia. Repleting -neutropenic cardiac diet #PPx -Hold AC antiplatelet in setting of thrombocytopenia -Ranitidine #Dispo -admitted for new afib, liver disease, and etoh withdrawal -no longer on neutropenic precautions True Bhandari MD PGY-1 IM Visit type - Emergency Visit Emergency Visit: No - New Patient This patient is new to me today: No - Critical Care Critical Care patient: No - Discharge Referral Referred to [facility] Med P.C.: No
[2017-09-07 07:15] LABS: BASO % 0.9 % (0-2.0); EOS % 1.6 % (0-4.5); HEMATOCRIT 30.1 % (32.4-45.2); HEMOGLOBIN 10.1 GM/dL (10.7-15.3); LYMPH % 27.3 % (8-40); MCH 35.1 pg (25.7-33.7); MCHC 33.5 g/dl (32.0-36.0); MEAN CELL VOLUME 104.9 fl (80-96); MEAN PLT VOLUME 9.5 fl (7.5-11.1); MONO % 12.9 % (3.8-10.2); NEUT % 57.3 % (42.8-82.8); PLATELET COUNT 84 K/MM3 (134-434); RBC 2.87 M/mm3 (3.60-5.2); RDW 16.8 % (11.6-15.6); WHITE BLOOD COUNT 2.1 K/mm3 (4.0-10.0)
[2017-09-07 07:39] LABS: CHLORIDE 107 mmol/L (98-107); POTASSIUM 3.8 mmol/L (3.5-5.1); SODIUM 142 mmol/L (136-145)
[2017-09-07 07:54] LABS: ALBUMIN 2.5 g/dl (3.4-5.0); ALK PHOS 146 U/L (45-117); ANION GAP 7 (8-16); BILIRUBIN,TOTAL 3.2 mg/dL (0.2-1.0); CALCIUM 8.1 mg/dL (8.5-10.1); CO2 28 mmol/L (21-32); CREATININE 0.5 mg/dL (0.55-1.02); GLUCOSE,RANDOM 79 mg/dL (74-106); MAGNESIUM 1.6 mg/dL (1.8-2.4); PHOSPHOROUS 2.8 mg/dL (2.5-4.9); SGOT/AST 242 U/L (15-37); SGPT/ALT 54 U/L (12-78); TOT PROT 5.4 g/dl (6.4-8.2)
[2017-09-07 08:50] LABS: BLOOD UREA NITROGEN 1 mg/dL (7-18)
[2017-09-07] MEDS: MAGNESIUM OXIDE 400 MG TABLET (FP) PO SCH (10:32)
[2017-09-07] MEDS: RANITIDINE HCL 150 MG TABLET (FP) PO SCH (10:32)
[2017-09-07] MEDS: PRENATAL VITAMINS W/ FOLIC ACID TABLET (FP) PO SCH (10:32)
[2017-09-07] MEDS: FOLIC ACID 1 MG TABLET (FP) PO SCH (10:33)
[2017-09-07] MEDS: chlordiazePOXIDE 5 MG CAPSULE PO SCH ×3 (10:33→22:21)
--- NOTE | 2017-09-07 11:47 | PN ---
Progress Note (short form) - Note Progress Note: CC: afib with rvr S: no cp, palps, dizziness, sob. Current Medications Generic Name Dose Route Start Last Admin Trade Name Alfredito PRN Reason Stop Dose Admin Chlordiazepoxide HCl 25 mg 09/05/17 17:55 Librium - PO 09/08/17 17:54 Q4H PRN WITHDRAWAL(CONT SUBST) Chlordiazepoxide HCl 15 mg 09/07/17 11:00 09/07/17 10:33 Librium - PO 09/08/17 05:01 15 mg [id number] GERALDO Administration Diltiazem HCl 30 mg 09/07/17 06:00 09/07/17 05:29 Cardizem - PO 30 mg TID GERALDO Administration Folic Acid 1 mg 09/05/17 15:00 09/07/17 10:33 Folic Acid - PO 1 mg DAILY GERALDO Administration Magnesium Oxide 800 mg 09/07/17 08:22 09/07/17 10:32 Mag-Ox - PO 800 mg DAILY GERALDO Administration Multivit/Folic Acid/Iron 1 tab 09/07/17 10:00 09/07/17 10:32 Vitamins (Sjr) - PO 1 tab DAILY GERALDO Administration Ranitidine HCl 150 mg 09/06/17 10:00 09/07/17 10:32 Zantac - PO 150 mg DAILY GERALDO Administration Thiamine HCl 100 mg 09/06/17 22:00 09/06/17 22:24 Vitamin B1 - PO 100 mg HS GERALDO Administration Vital Signs Period Temp Pulse Resp BP Sys/Marie Pulse Ox Last 24 Hr 97.9 F-99 F 62-91 18-20 94-116/62-73 98 NAD, calm JVD flat, neck supple ctab, nl effort rrr nl s1, s2. no mrg + bs soft nt nd ext without e/c/c no jaundice, diaphoresis aaox3 CBC, BMP 09/07/17 05:45 09/07/17 05:45 EKG x 2 09/03: afib with rvr, 135 bpm and 129 bpm. low voltages. no acute ischemic changes. EKG 09/04: SR, low voltages. prolonged qtc 507 ms. non-specific t wave abnormalities in anterior leads. tele: sr abd u/s: hepatomegaly. AAA, ivc wnl. cxr: no acute pathology a/p: 51 yo smoker with pmhx of etoh abuse and polysubstance use, asthma, anemia, bipolar disorder, fibroids and skin disease (psoriasis and eczema), left hip oa , who p/w palps and found to have new onset afib with rvr complicated by thrombocytopenia new onset afib with rvr in setting of thrombocytopenia --> now in sr - s/p spontaneous conversion to sr s/p diltiazem. no recurrence on dilt 30 mg po tid, but uptitrated to qid yesterday b/c was having tachycardia with ambulation. Today bp running low so will change back to 30 mg tid. - back in sr (sinus tach when ambulating). ok to hold AC in light of low chads2- vasc and thrombocytopenia - echo pending - aggressive lyte repletion prn, tsh wnl - etoh cessation counseling. detox following. ab troponins. - minimally abnormal troponin with flat trend. Ekg without acute ischemic changes. no concern for acs. in light of co-morbidities would defer further ischemic work up at this time. Can consider as outpatient when acute issues resolve. - defer asa, statin in setting of thrombocytopenia, ab lft's. ongoing work up of thrombocytopenia, ab lft's per pmd. gi, heme. prolonged qtc - in setting of lyte abnormalities which persist. - would repeat after lytes repleted. avoid qtc prolonging drugs. + tobacco/polysubstance use - cessation counseling. detox following.
--- NOTE | 2017-09-07 12:09 | PN ---
Teaching Attending Note Name of Resident: True Bhandari ATTENDING PHYSICIAN STATEMENT I saw and evaluated the patient. I reviewed the resident's note and discussed the case with the resident. I agree with the resident's findings and plan as documented. SUBJECTIVE: asymptomatic. denies CP, SOB, fever, chills, palpitations, N/V/C/D or PAGE. no auditory/visual hallucinations OBJECTIVE: Last Vital Signs Temp Pulse Resp BP Pulse Ox 97.9 F 91 H 18 116/73 98 09/07/17 08:15 09/07/17 08:15 09/07/17 08:15 09/07/17 08:15 09/06/17 20:34 General NAD, resting comfortable CV S1 S2 RRR no murmur/rub/gallop Lungs CTA no wheezing/rales/rhonchi Abdomen SOft NT/ND +hepatomegaly Extremities no tremors, no diaphoresis ASSESSMENT AND PLAN: 51 yo F with PMHx of asthma, anemia, bipolar disorder and skin disease ( psoriasis and eczema) , ETOH abuse, prior h/o detox admitted with palpitations, found with new onset Afib with RVR. 1. New onset Afib with RVR, intermittently in NSR- rate has been controlled on cardizem, however had some periods of hypotension. cardizem dose reduced to Q8H dosing. will monitor today and switch to long acting in the AM if remains stable. unable to start anticoagulation due to thrombocytopenia and risks of bleeding. cardio on board 2. Acute ETOH withdrawal- CIWA 0. on librium taper. will complete taper tomorrow. counseled on risks assoc iwth drinking and damage already developed due to ETOH. not interested in inpatient rehab at this time. thiaimine/folate/ mvi 3. Abnormal LFTs, likely alcoholic hepatitis (MELD 12) , given direct hyperbilirubinemia, r/o obstructive biliary process- MRCP negative for obstruction. hepatitis panel pending. LFT stable. GI on board 4. Leucopenia with absolute neutropenia, suspect from alcohol related bone marrow suppression, no clinical evidence of infection currently- ANC 1197. no need for neutropenic precautions. hematology on board. workup sent 5. Thrombocytopenia, likely from alcohol related bone suppression, possible sequestration from splenomegaly, r/o portal hypertension 6. Hypomagnesemia- MG iv and po 7. Hypokalemia- resolved 8. Hypoglycemia, ?Poor po +/- hepatic concerns- improved. has remained stable. no symptoms. states her appetite improved today. started on ensure supplements. encouraged po intake. 9. Prolonged QTc 10. Bipolar disorder 11. Asthma 12. DVT ppx- SCD. would not give hep sq given thrombocytopenia 13. d/c planning tomorrow
[2017-09-07] MEDS ORDERED: MAGNESIUM 2GM/50ML STERILE WATER IVPB IVPB ONE (15:09)
[2017-09-07] MEDS ORDERED: chlordiazePOXIDE 5 MG CAPSULE PO SCH (17:00)
[2017-09-07] MEDS: THIAMINE HCL 100 MG TABLET (FP) PO SCH (22:20)
[2017-09-08] MEDS: chlordiazePOXIDE 5 MG CAPSULE PO SCH (05:29)
[2017-09-08] MEDS: dilTIAZem HCL 30 MG TABLET (FP) PO SCH (05:29)
--- NOTE | 2017-09-08 07:00 | PN ---
Physical Exam: SUBJECTIVE: Patient seen and examined at bedside. No acute events. No pain overnight. Pt slept comfortably. OBJECTIVE: Vital Signs Period Temp Pulse Resp BP Sys/Marie Pulse Ox Last 24 Hr 97.9 F-99 F 61-93 18-20 100-137/59-87 97 Gen: Comfortable, NAD HEENT: NCAT, EOMI, moist membranes Cor: RRR, normal S1/S2, no murmurs/rubs/gallops Pulm: CTA b/l Abd: Soft, nontender, pos hepatomegally Ext: 2+ pulses, no edema Laboratory Results - last 24 hr 09/05/17 09/07/17 09/07/17 06:00 05:45 05:45 WBC 2.1 L RBC 2.87 L Hgb 10.1 L Hct 30.1 L MCV 104.9 H MCH 35.1 H MCHC 33.5 RDW 16.8 H Plt Count 84 L MPV 9.5 Neutrophils % 57.3 Lymphocytes % 27.3 Monocytes % 12.9 H Eosinophils % 1.6 Basophils % 0.9 Nucleated RBC % 0 Sodium 142 Potassium 3.8 Chloride 107 Carbon Dioxide 28 Anion Gap 7 L BUN 1 L* Creatinine 0.5 L Creat Clearance w eGFR > 60 POC Glucometer Random Glucose 79 Calcium 8.1 L Phosphorus 2.8 Magnesium 1.6 L Total Bilirubin 3.2 H D AST 242 H ALT 54 Alkaline Phosphatase 146 H Total Protein 5.4 L Albumin 2.5 L Beta Globulins 1.2 YOHANNES & SPEP Interp Total Protein (YOHANNES) 5.6 L Albumin (YOHANNES) 2.8 L Albumin/Globulin (YOHANNES) 1.1 Aeotr-7-Esebnbprr YOHANNES 0.3 Kzsmo-4-Sslprgbrj YOHANNES 0.5 Gamma Globulins (YOHANNES) 0.8 YOHANNES M-Earl Not observed YOHANNES Comments IEP IgG 783 IEP IgA 585 H IEP IgM 121 09/07/17 09/07/17 09/07/17 12:09 17:18 22:02 WBC RBC Hgb Hct MCV MCH MCHC RDW Plt Count MPV Neutrophils % Lymphocytes % Monocytes % Eosinophils % Basophils % Nucleated RBC % Sodium Potassium Chloride Carbon Dioxide Anion Gap BUN Creatinine Creat Clearance w eGFR POC Glucometer 102 105 100 Random Glucose Calcium Phosphorus Magnesium Total Bilirubin AST ALT Alkaline Phosphatase Total Protein Albumin Beta Globulins YOHANNES & SPEP Interp Total Protein (YOHANNES) Albumin (YOHANNES) Albumin/Globulin (YOHANNES) Umbvm-3-Kiatknycm YOHANNES Gyoqn-1-Zovrveqch YOHANNES Gamma Globulins (YOHANNES) YOHANNES M-Earl YOHANNES Comments IEP IgG IEP IgA IEP IgM 09/08/17 05:50 WBC RBC Hgb Hct MCV MCH MCHC RDW Plt Count MPV Neutrophils % Lymphocytes % Monocytes % Eosinophils % Basophils % Nucleated RBC % Sodium Potassium Chloride Carbon Dioxide Anion Gap BUN Creatinine Creat Clearance w eGFR POC Glucometer 95 Random Glucose Calcium Phosphorus Magnesium Total Bilirubin AST ALT Alkaline Phosphatase Total Protein Albumin Beta Globulins YOHANNES & SPEP Interp Total Protein (YOHANNES) Albumin (YOHANNES) Albumin/Globulin (YOHANNES) Bpqfy-3-Bggjjxuzl YOHANNES Gpcyc-6-Aohjvizsg YOHANNES Gamma Globulins (YOHANNES) YOHANNES M-Earl YOHANNES Comments IEP IgG IEP IgA IEP IgM Active Medications Generic Name Dose Route Start Last Admin Trade Name Freq PRN Reason Stop Dose Admin Chlordiazepoxide HCl 25 mg 09/05/17 17:55 Librium - PO 09/08/17 17:54 Q4H PRN WITHDRAWAL(CONT SUBST) Diltiazem HCl 30 mg 09/07/17 06:00 09/08/17 05:29 Cardizem - PO 30 mg TID GERALDO Administration Folic Acid 1 mg 09/05/17 15:00 09/07/17 10:33 Folic Acid - PO 1 mg DAILY GERALDO Administration Magnesium Oxide 800 mg 09/07/17 08:22 09/07/17 10:32 Mag-Ox - PO 800 mg DAILY GERALDO Administration Multivit/Folic Acid/Iron 1 tab 09/07/17 10:00 09/07/17 10:32 Vitamins (Sjr) - PO 1 tab DAILY GERALDO Administration Ranitidine HCl 150 mg 09/06/17 10:00 09/07/17 10:32 Zantac - PO 150 mg DAILY GERALDO Administration Thiamine HCl 100 mg 09/06/17 22:00 09/07/17 22:20 Vitamin B1 - PO 100 mg HS GERALDO Administration ASSESSMENT/PLAN:
[2017-09-08 07:54] LABS: BASO % 0.8 % (0-2.0); HEMATOCRIT 30.8 % (32.4-45.2); HEMOGLOBIN 10.3 GM/dL (10.7-15.3); MCH 35.3 pg (25.7-33.7); MCHC 33.5 g/dl (32.0-36.0); MEAN CELL VOLUME 105.4 fl (80-96); MEAN PLT VOLUME 9.5 fl (7.5-11.1); MONO % 13.6 % (3.8-10.2); NEUT % 59.6 % (42.8-82.8); PLATELET COUNT 100 K/MM3 (134-434); RBC 2.92 M/mm3 (3.60-5.2); RDW 16.9 % (11.6-15.6); WHITE BLOOD COUNT 2.2 K/mm3 (4.0-10.0)
[2017-09-08 08:10] LABS: CHLORIDE 104 mmol/L (98-107); POTASSIUM 3.6 mmol/L (3.5-5.1); SODIUM 139 mmol/L (136-145)
[2017-09-08 08:38] LABS: ALBUMIN 2.6 g/dl (3.4-5.0); ALK PHOS 163 U/L (45-117); ANION GAP 7 (8-16); BILIRUBIN,TOTAL 2.7 mg/dL (0.2-1.0); CALCIUM 8.5 mg/dL (8.5-10.1); CO2 28 mmol/L (21-32); CREATININE 0.5 mg/dL (0.55-1.02); GLUCOSE,RANDOM 83 mg/dL (74-106); MAGNESIUM 1.5 mg/dL (1.8-2.4); PHOSPHOROUS 4.2 mg/dL (2.5-4.9); SGOT/AST 194 U/L (15-37); SGPT/ALT 51 U/L (12-78); TOT PROT 5.7 g/dl (6.4-8.2)
[2017-09-08 08:40] LABS: BLOOD UREA NITROGEN 4 mg/dL (7-18)
[2017-09-08] MEDS ORDERED: PT OWN MED DRAWER 7, Y5N ONE (09:49)
--- NOTE | 2017-09-08 10:33 | PN ---
Progress Note (short form) - Note Progress Note: CC: afib with rvr S: no cp, palps, dizziness, sob. Current Medications Generic Name Dose Route Start Last Admin Trade Name Alfredito PRN Reason Stop Dose Admin Diltiazem HCl 120 mg 09/08/17 10:00 Cardizem Cd - PO DAILY GERALDO Magnesium Oxide 800 mg 09/07/17 08:22 09/07/17 10:32 Mag-Ox - PO 800 mg DAILY GERALDO Administration Multivit/Folic Acid/Iron 1 tab 09/07/17 10:00 09/07/17 10:32 Vitamins (Sjr) - PO 1 tab DAILY GERALDO Administration Ranitidine HCl 150 mg 09/06/17 10:00 09/07/17 10:32 Zantac - PO 150 mg DAILY GERALDO Administration Thiamine HCl 100 mg 09/06/17 22:00 09/07/17 22:20 Vitamin B1 - PO 100 mg HS GERALDO Administration Vital Signs Period Temp Pulse Resp BP Sys/Marie Pulse Ox Last 24 Hr 98.2 F-99 F 61-93 18-20 100-137/59-87 97 NAD, calm JVD flat, neck supple ctab, nl effort rrr nl s1, s2. no mrg + bs soft nt nd ext without e/c/c no jaundice, diaphoresis aaox3 CBC, BMP 09/08/17 06:00 09/08/17 06:00 EKG x 2 09/03: afib with rvr, 135 bpm and 129 bpm. low voltages. no acute ischemic changes. EKG 09/04: SR, low voltages. prolonged qtc 507 ms. non-specific t wave abnormalities in anterior leads. tele: sr abd u/s: hepatomegaly. AAA, ivc wnl. cxr: no acute pathology echo 08/2017: nl lv/rv, no sig valve path a/p: 51 yo smoker with pmhx of etoh abuse and polysubstance use, asthma, anemia, bipolar disorder, fibroids and skin disease (psoriasis and eczema), left hip oa , who p/w palps and found to have new onset afib with rvr complicated by thrombocytopenia new onset afib with rvr in setting of thrombocytopenia --> now in sr - s/p spontaneous conversion to sr s/p diltiazem. no recurrence on dilt 30 mg po tid, but uptitrated to qid yesterday b/c was having tachycardia with ambulation. Today bp running low so will change back to 30 mg tid. - back in sr (sinus tach when ambulating). ok to hold AC in light of low chads2- vasc and thrombocytopenia - echo unremarkable - aggressive lyte repletion prn, tsh wnl - etoh cessation counseling. detox following. ab troponins. - minimally abnormal troponin with flat trend. Ekg without acute ischemic changes. no concern for acs. in light of co-morbidities would defer further ischemic work up at this time. Can consider as outpatient when acute issues resolve. - defer asa, statin in setting of thrombocytopenia, ab lft's. ongoing work up of thrombocytopenia, ab lft's per pmd. gi, heme. prolonged qtc - in setting of lyte abnormalities which persist. - would repeat after lytes repleted. avoid qtc prolonging drugs. + tobacco/polysubstance use - cessation counseling. detox following. cardiac jensen stable, dc tele
[2017-09-08] MEDS: MAGNESIUM OXIDE 400 MG TABLET (FP) PO SCH (10:42)
[2017-09-08] MEDS: RANITIDINE HCL 150 MG TABLET (FP) PO SCH (10:42)
[2017-09-08] MEDS: PRENATAL VITAMINS W/ FOLIC ACID TABLET (FP) PO SCH (10:43)
[2017-09-08] MEDS ORDERED: MAGNESIUM SULF 50% (8.12 MEQ/2 ML-1 GM VIAL) IVPB ONE (11:17)
[2017-09-08] MEDS ORDERED: MAGNESIUM SULFATE IN WATER 2 GM/50 ML IVPB IVPB ONE (12:00)
[2017-09-08 12:52] LABS: ANISOCYTOSIS 1+; MACROCYTOSIS 1+; PLATELET ESTIMATE DECREASED; TARGET CELLS 1+
--- NOTE | 2017-09-08 13:22 | PN ---
Teaching Attending Note Name of Resident: True Bhandari ATTENDING PHYSICIAN STATEMENT I saw and evaluated the patient. I reviewed the resident's note and discussed the case with the resident. I agree with the resident's findings and plan as documented. SUBJECTIVE:asymptomatic. denies CP, SOB, fever, chills, N/V/C/D, palpitations, dizzynes OBJECTIVE: Last Vital Signs Temp Pulse Resp BP Pulse Ox 98.6 F 67 20 123/75 97 09/08/17 10:00 09/08/17 10:00 09/08/17 10:00 09/08/17 10:09/08/17 09:00 General NAD, resting comfortable CV S1 S2 RRR no murmur/rub/gallop ASSESSMENT AND PLAN: 51 yo F with PMHx of asthma, anemia, bipolar disorder and skin disease ( psoriasis and eczema) , ETOH abuse, prior h/o detox admitted with palpitations, found with new onset Afib with RVR. 1. New onset Afib with RVR, intermittently in NSR- has remained in NSR. switch to cardizem 120mg CD for improved compliance. BP and HR has been monitor over the past 4 hours and has remained stable. will d/c on CD for increased compliance as pt states she will not take 3x/day. will need cardio follow up for stress test as outpatient. unable to start anticoagulation due to thrombocytopenia and risks of bleeding. cardio on board 2. Acute ETOH withdrawal- CIWA 0. librium taper completed this AM. no signs of withdrawal. thiaimine/folate/mvi 3. Abnormal LFTs, likely alcoholic hepatitis (MELD 12) , given direct hyperbilirubinemia, r/o obstructive biliary process- MRCP negative for obstruction. hepatitis panel pending. LFT stable. GI on board 4. Leucopenia with absolute neutropenia, suspect from alcohol related bone marrow suppression, no clinical evidence of infection currently- ANC 1197. no need for neutropenic precautions. hematology on board. workup sent 5. Thrombocytopenia, likely from alcohol related bone suppression, possible sequestration from splenomegaly, r/o portal hypertension 6. Hypomagnesemia- MG po and will send on discharge. should have levels repeated in 1 week 7. Hypokalemia- resolved 8. Hypoglycemia, ?Poor po +/- hepatic concerns- improved. has remained stable. no symptoms. states her appetite improved today. started on ensure supplements. encouraged po intake. 9. Prolonged QTc 10. Bipolar disorder 11. Asthma 12. DVT ppx- SCD. would not give hep sq given thrombocytopenia 13. d/c home. counselled on importance of ETOH cessation, medication compliance and follow up. stated her many medical problems will continue to worsen if she does not comply
[2017-09-08 14:03] VITALS: BP 124/86; PULSE 63; TEMP 98.8
--- NOTE | 2017-09-08 19:01 | DS ---
Physical Exam: SUBJECTIVE: Patient seen and examined at bedside. No acute events. No pain overnight. Pt slept comfortably. OBJECTIVE: Vital Signs Period Temp Pulse Resp BP Sys/Marie Pulse Ox Last 24 Hr 98.4 F-99 F 62-93 18-20 100-137/75-87 97-97 PHYSICAL EXAM Gen: Comfortable, NAD HEENT: NCAT, EOMI, moist membranes Cor: RRR, normal S1/S2, no murmurs/rubs/gallops Pulm: CTA b/l Abd: Soft, nontender, pos hepatomegally Ext: 2+ pulses, no edema LABS Laboratory Results - last 24 hr 09/05/17 09/07/17 09/08/17 06:00 22:02 05:50 WBC RBC Hgb Hct MCV MCH MCHC RDW Plt Count MPV Neutrophils % Lymphocytes % Monocytes % Eosinophils % Basophils % Nucleated RBC % Platelet Estimate Polychromasia Anisocytosis Macrocytosis Target Cells Sodium Potassium Chloride Carbon Dioxide Anion Gap BUN Creatinine Creat Clearance w eGFR POC Glucometer 100 95 Random Glucose Calcium Phosphorus Magnesium Total Bilirubin AST ALT Alkaline Phosphatase Total Protein Albumin Beta Globulins 1.2 YOHANNES & SPEP Interp Total Protein (YOHANNES) 5.6 L Albumin (YOHANNES) 2.8 L Albumin/Globulin (YOHANNES) 1.1 Zrnoq-[id number] YOHANNES 0.3 Umton-3-Zmmntbjov YOHANNES 0.5 Gamma Globulins (YOHANNES) 0.8 YOHANNES M-Earl Not observed YOHANNES Comments IEP IgG 783 IEP IgA 585 H IEP IgM 121 09/08/17 09/08/17 09/08/17 06:00 06:00 11:43 WBC 2.2 L RBC 2.92 L Hgb 10.3 L Hct 30.8 L MCV 105.4 H MCH 35.3 H MCHC 33.5 RDW 16.9 H Plt Count 100 L MPV 9.5 Neutrophils % 59.6 Lymphocytes % 24.0 Monocytes % 13.6 H Eosinophils % 2.0 Basophils % 0.8 Nucleated RBC % 0 Platelet Estimate Decreased Polychromasia 1+ Anisocytosis 1+ Macrocytosis 1+ Target Cells 1+ Sodium 139 Potassium 3.6 Chloride 104 Carbon Dioxide 28 Anion Gap 7 L BUN 4 L Creatinine 0.5 L Creat Clearance w eGFR > 60 POC Glucometer 122 Random Glucose 83 Calcium 8.5 Phosphorus 4.2 Magnesium 1.5 L Total Bilirubin 2.7 H AST 194 H ALT 51 Alkaline Phosphatase 163 H Total Protein 5.7 L Albumin 2.6 L Beta Globulins YOHANNES & SPEP Interp Total Protein (YOHANNES) Albumin (YOHANNES) Albumin/Globulin (YOHANNES) [id number]-[id number]-Yvejxqisk YOHANNES Fbxhn-2-Kqvexqwqz YOHANNES Gamma Globulins (YOHANNES) YOHANNES M-Earl YOHANNES Comments IEP IgG IEP IgA IEP IgM HOSPITAL COURSE: Date of Admission:09/03/17 Date of Discharge: 09/08/17 Pt is a 51 F with PMHx of asthma, anemia, bipolar disorder and skin disease ( psoriasis and eczema), ETOH abuse, prior h/o detox who presented to ED with complaint of palpitations and SOB. She was admitted with new onset Afib with RVR and EtOH withdrawal. Pt's pAF w/ RVR converted to sinus. Her CHADsVASC score was 1. TSH was normal, Utox pos for THC, and Echo was wnl. Cardio was consulted. The patient was given Cardizem. She was switched to long-acting on d/c. Pt has a history of EtOH abuse. [facility] She was placed on Librium protocol for withdrawal. She did not show signs of withdrawal during her stay. Pt was found to have Hepatitis, likely 2/2 EtOH abuse. Her MELD was 12. U/S () showed hepatomegally. She had persistent transaminitis and hyperbilirubinemia. Abd MRI (09/05/2017) showed postero-inferior perihepatic fluid with no ductal dilation and no stones. There were no findings suspicious for malignancy. Her viral hepatitis panel was neg. GI was consulted on the case. Pt had Leukopenia and thrombocytopenia likely 2/2 alcoholic BM suppression. Heme was consulted and began an immunology workup. Pt was given clear instructions to follow up with Heme as an outpt. Pt had hypoglycemia related to alcoholic liver disease. She was put on D5 until sugars stabilized. Pt's Asthma was stable. She should continue inhaler on d/c Pt has hx of Bipolar disorder which was stable in the hospital. She will resume home meds on D/C Pt is in no distress and stable for discharge. Minutes to complete discharge: 30 Discharge Summary Reason For Visit: ATRIAL FIBRILLATION WITH RAPID VENTRICULAR RESPONS Condition: Fair - Instructions Diet, Activity, Other Instructions: You were admitted to the hospital because of liver failure due to alcohol abuse. You need to follow up with your primary care doctor. Make sure he checks your magnesium level. Your magnesium was low in the hospital, and you are being discharged with magnesium supplements. You should take 400 mg by mouth daily and have it checked again with your PCP when you see him. You were seen by GI during your hospital stay. You should follow up with Dr. Andrew Pineda as an out patient. He will help manage your liver disease. You were seen by the strategic development manager. You should follow up with Dr. Nuvia Mcdonald as an out patient. Your blood counts were low in the hospital and she can help you monitor and manage that. You were seen by the engagement lead. You have a new diagnosis of ATRIAL FIBRILLATION. You need to follow up with Dr. Murray or Dr. Leroy as an out patient to help you manage that. You will need to have a stress test done. It is very important that you do not continue to drink. You should seek out Alcoholics Anonymous meetings and get any support that you need. Your previous alcohol use has had detrimental effects on your health already, and further use will likely make these issues worse. Avoid using NSAIDS (eg. Advil, Ibuprofen, Naproxen) because your platelets are low. If you develop new symptoms or if your symptoms get worse, return to the ED. If you develop unusual bleeding or abdominal distension. Referrals: Franco Oreilly MD [Staff Physician] - 1 Week Andrew Pineda MD [Staff Physician] - 1 Week Christianne Ernandez MD [Staff Physician] - 1 Week Johnny Harmon MD [Staff Physician] - 1 Week Disposition: HOME - Home Medications Comprehensive Discharge Medication List: Ambulatory Orders Albuterol 0.083% Nebulizer Sabi [Ventolin 0.083% Nebulizer Soln -] 1 amp NEB PRN PRN 09/08/17 Citalopram Hydrobromide [Citalopram HBr] 10 mg PO DAILY 09/08/17 Diltiazem Cd [Cardizem Cd -] 120 mg PO DAILY #30 cap.cd.24h 09/08/17 Folic Acid 1 mg PO DAILY 09/08/17 Halobetasol Prop 0.05% Tp Crm [Ultravate (Nf) -] 15 gm NR PRN PRN 09/08/17 Magnesium Oxide [Mag-Ox -] 400 mg PO DAILY #30 tablet 09/08/17 Quetiapine Fumarate [Seroquel] 100 tab PO HS 09/08/17 Ranitidine [Zantac -] 150 mg PO DAILY 09/08/17 Sennosides/Docusate Sodium [Senna S Tablet] 1 each PO DAILY 09/08/17 This patient is new to me today: No Emergency Visit: No Critical Care patient: No - Discharge Referral Referred to [facility] No
== END 2017-09-08 15:13 | disposition home or self-care (01) | DRG 309 ==
LOC: JER 18:42 → JERBED 20:18 → J4W 22:03
PROVIDERS: ADMIT Internal Medicine; ATTEND Internal Medicine
PROC: HZ2ZZZZ Detoxification Services for Substance Abuse Treatment (ICD-10-PCS; principal; 2017-09-06)
DX: I48.91 Unspecified atrial fibrillation (principal); D61.818 Other pancytopenia; F10.230 Alcohol dependence with withdrawal, uncomplicated; K70.10 Alcoholic hepatitis without ascites; F31.9 Bipolar disorder, unspecified; R16.2 Hepatomegaly with splenomegaly, not elsewhere classified; F12.10 Cannabis abuse, uncomplicated; J45.909 Unspecified asthma, uncomplicated; D64.9 Anemia, unspecified; E83.42 Hypomagnesemia; E83.51 Hypocalcemia; G89.29 Other chronic pain; M25.552 Pain in left hip; E87.6 Hypokalemia; F17.210 Nicotine dependence, cigarettes, uncomplicated; F14.10 Cocaine abuse, uncomplicated; I45.81 Long QT syndrome; D69.59 Other secondary thrombocytopenia; L40.9 Psoriasis, unspecified; L30.9 Dermatitis, unspecified; E16.2 Hypoglycemia, unspecified; E80.6 Other disorders of bilirubin metabolism; D72.819 Decreased white blood cell count, unspecified; R74.0 Nonspecific elevation of levels of transaminase and lactic acid dehydrogenase [LDH]
CPT/HCPCS: 36415; 71045-TC-FY; 74181-TC; 76705-TC; 80048; 80053; 80076; 80307; 82248; 82550; 82553; 82607; 82728; 82746; 82784; 82962; 83540; 83550; 83615; 83735; 84100; 84155; 84165; 84443; 84484; 85025; 85610; 85730; 86334; 86704; 86706; 86708; 87340; 93005; 93010; 93306-TC; 99284-25; J1644; J7030